=== PATIENT | male | born 1935 | race Caucasian/White ===

== ENCOUNTER → 2017-07-20 | Outpatient (CLI) | payer SELFPAY ==
[2017-07-20 18:17] LABS: ALBUMIN 3.1 g/dL (3.2-5.5); ALBUMIN/GLOBULIN RATIO 0.8 (1.0-2.2); ALKALINE PHOSPHATASE 57 IU/L (42-121); ALT ALANINE AMINOTRANSFERASE 20 IU/L (10-60); AST ASPARTATE AMINOTRANSFERASE 26 IU/L (10-42); BILIRUBIN,TOTAL 0.6 mg/dL (0.2-1.0); BUN - BLOOD UREA NITROGEN 16 mg/dL (6-20); CALCIUM 8.1 mg/dL (8.5-10.3); CARBON DIOXIDE - CO2 28 mmol/L (21-32); CHLORIDE 95 mmol/L (101-111); CHOL/HDL RATIO 3.4 (<5.0); CHOLESTEROL 75 mg/dL; CREATININE 0.5 mg/dL (0.6-1.2); GFR - MDRD 159 (>89); HDL CHOLESTEROL 22 mg/dL; LDL CHOLESTEROL,CALCULATED 36 mg/dL; LDL/HDL RATIO 1.6 (<3.6); SODIUM 129 mmol/L (135-145); VLDL CHOLESTEROL 17 mg/dL
[2017-07-26 10:40] LABS: GLUCOSE 59 mg/dL (70-100)
== END ==
LOC: LAB.R 08:00
PROVIDERS: ATTEND Registered Nurse
DX: M62.81 Muscle weakness (generalized) (principal); E78.1 Pure hyperglyceridemia
CPT/HCPCS: 80053; 80061; 83721; 84443

== ENCOUNTER 2018-06-27 19:28 | Outpatient (CLI) | payer MEDICARE, OTHER ==
--- NOTE | 2018-06-27 20:48 | CONSULTATION NOTE ---
Palliative Care Consultation - Referral Referring Provider: MARTIR Mendes Time of Visit: Mon06/27/2018. 11:10 - 12:05 Referral setting: Assisted living ([facility]) Referral Reason: Insomnia / Pal Care - Information Sources Records reviewed: RN notes reviewed, Previous records reviewed History/Review of Systems obtained from: Patient, Family Exam limitations: No limitations - History of Present Illness Brief History of Present Illness: Thank you, Karely MCMAHAN, for asking the palliative care consult service to be involved in the care of your patient. I am asked to provide support regarding symptom management and advance care managementPa. 82-year-old male living at [facility]. 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 Patient is lying in bed, lethargic, flat affect. Daughter Barbara is present, reports he just went back to bed for rest. Patient is in bed majority of the time; up in his wheelchair about 6 hours spread throughout the day. He has had PT numerous times since the stroke in 2005. He currently has a trapeze above his bed which he uses for repositioning and to exercise. He's lived at [facility] for a year. He relocated to [facility] from [place], [place], after his . His daughter lives in [place]. His only other child, a son, in an accident aged 33 (a furnace blew up). Patient remains in his room most of the time, eating meals in the room. He says this is because he can't swallow well, is not comfortable eating in front of others. Prior to his stroke in 2005 he led an active life, so the drastic change in condition has been difficult. He reports chronic insomnia, lying awake for hours. Mirtzapine was started, he's unsure of improvement. He reports occasional leg cramps from being bedridden (spastic hemiplegia), tramadol helps a lot. He denies nausea/vomiting. He had the flu this winter, had N/V then. Medical/Surgical History - Past Medical History Cardiovascular: reports: High cholesterol Respiratory: reports: None, Other (hay fever) Neuro: CVA (2006), Other (L side hemiparesis and hemiplegia s/p CVA. 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 With lumpectomy) Psych: reports: Depression. denies: Anxiety Musculoskeletal: reports: Hemiplegia (Left side, s/p CVA) - Past Surgical History Other past surgical history: Lumpectomy 2010 - Substance History Use: Uses substance without health or social issues: Tobacco (Never smoker.), Alcohol (formerly drank excessively, per daughter. None now.) Social History - Living Situation Living arrangement: Assisted living ([facility]) Living Situation: With caregiver(s) Support System: He was in 2018. His had cared for him since his stroke in 2005. After her , he moved from [facility] to [facility] and into [facility]. His daughter (his only surviving child) lives in [place]. He had a son who in an accident (furnace explosion) at age 33. 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 Before his stroke and disability he led and active life He loved cars and driving, and his pride and machelle was a red 2 Corvette. He still has a photo of it. Never smoked, but did drink excessively, according to his daughter. He doesn't drink currently. Family History - Family History Family History Comment/Other: Father age 89 of an accident. Had dementia. Mother age 88 of Parkinson's complications. Had colon and breast cancer. age 79 of heart failure. She had Crohn's. His son, Mahin, in an accident at age 33 when a furnace blew up. Medications/Allergies - Medications Home Medications: Ambulatory Orders Medication Instructions Recorded Confirmed Acetaminophen 1,000 mg PO Q6H PRN MDD NTE 3000mg 06/27/18 06/27/18 / 24 hrs Atorvastatin Calcium 40 mg PO .QHS 06/27/18 06/27/18 Cholecalciferol (Vitamin D3) 1 tab PO DAILY 06/27/18 06/27/18 [Vitamin D3] Clopidogrel [Plavix] 75 mg PO DAILY 06/27/18 06/27/18 Levothyroxine [Synthroid] 100 mcg PO .QAM 06/27/18 06/27/18 Mirtazapine 7.5 mg PO .QHS 06/27/18 06/27/18 Multivitamin [Multivitamins] 1 tab PO DAILY 06/27/18 06/27/18 Pyridoxine HCl [Vitamin B-6] 100 mg PO DAILY 06/27/18 06/27/18 traMADol [Ultram] 50 mg PO Q6H PRN 06/27/18 06/27/18 Review of Systems - Constitutional Constitutional: reports: Fatigue, Weakness, Poor appetite, Weight gain (129 lbs 05/25/2018. Has been 128-129 since January. Has slowly gained weight since 07/16/2017 at 122 lbs.) - Ears, Nose & Throat Ears, Nose & Throat: reports: Other (sinus problems from hay fever) - Cardiovascular Cardiovascular: denies: Chest pain - Respiratory Respiratory: denies: SOB at rest - Gastrointestinal Gastrointestinal: reports: Poor appetite. denies: Constipation - Genitourinary Genitourinary: denies: Dysuria - Musculoskeletal Musculoskeletal: reports: Muscle pain (intermittent spastic hemiplegia, improved with tramadol), Limited range of motion (L side hemiparesis and hemiplegia), Assistive devices (trapeze; 4-footed cane; wheelchair), Transfer issues (1 person assist), Other (balance issues) - Neurological Neurological: reports: Other (L side hemiparesis and hemiplegia. He is R side dominant.) - Endocrine Endocrine: reports: Hypothyroidism Physical Exam - Vital Signs Temperature: 96.7 F Pulse Rate: 74 O2 Saturation: 95 (room air) Blood Pressure: 127/64 (wrist cuff) - Physical Exam General Appearance: positive: No acute distress, Alert (mildly somnolent) Eyes Bilateral: positive: Normal inspection ENT: positive: No signs of dehydration Neck: positive: Trachea midline Cardiovascular: positive: Regular rate & rhythm, No gallop Respiratory: positive: Chest non-tender, No respiratory distress, Breath sounds nml Skin: positive: Dryness Extremities: positive: No pedal edema Neurologic/Psychiatric: positive: Oriented x3, Flat affect Palliative Care - POLST Patient has POLST: Yes POLST Status: DNR, Selective Treatment Pain: No pain Tiredness/Fatigue: Moderate (4-6) Drowsiness/Sedation: Moderate (4-6) Nausea: None Depression: Moderate (4-6) Anxiety: None Dyspnea: Mild (1-3) Anorexia: Severe (7-10) Sleep: Sleeps poorly (Mirtazapine has helped) Constipation: No Feelings of wellbeing/Perceived Quality of Life: Poor Performance Status: requires 1-person assist for transfers poor balance due to L side weakness limited self-care requires assistance with dressing and transfers L side hemiparesis and hemiplegia s/p CVA 2006 Problems chewing/swallowing so eats in room in bed majority of the time. up out of bed about 6 hours/day throughout the day continent - Palliative Care Discussion: Patient judges his quality of life as poor because of the physical limitations of his hemiparesis. He used to live an active life; he loved driving cars and had a beautiful 1961 Corvette. His daughter showed me a photo of it. He repeatedly states it's never going to get any better, nothing can be done to improve his condition. He has had Physical Therapy many times. He has a trapeze above his bed which he uses, and he reports that he does exercises learned in PT His daughter afterwards tells me he has been shy and private his entire life and doesn't mingle. So his eating alone in his room is characteristic of him. He has chronic insomnia. Mirtazapine has been started June 06, and he says it helps. He is willing to try melatonin. Provided information on sleep hygiene and counseling to increase physical activity and minimize sedentariness. Had a discussion on hospice; they have had good experience with Hospice in the past. Made sure to clarify that he is not a hospice candidate at this time. Patient confirmed goals of care and his current POLST: DNR and transfer to hospital for stabilization/treatment of reversible conditions. Results - Lab Results Lab results reviewed: Yes Lab and Imaging Results: The most recent labs are 07/20/2017: Na 129 L K+ 3.5 Chl 95 L BUN 16 Cr 0.5 L GFR 159 Glucose 59 L Ca 8.1 L Liver labs are normal Albumin 3.1 Albumin/globulin Ratio 0.8 L HDL 22 L Impression and Recommendations - Palliative Care Impression: 82-year-old male living at [facility]. History of CVA 2005 with L side hemiparesis & hemiplegia, chronic insomnia and breast cancer with lumpectomy. Palliative care to provide ongoing support with symptom management and advance care planning. Recommendations/Counseling Done: L side hemiparesis and hemiplegia s/p CVA 2006: Stable, very limiting to his daily activities and life. Spends only about 6 hours/day out of bed. Does continue with exercises (using an above-bed trapeze) he has learned from PT sessions over the years. Did present that Home Health PT is available, again, if he is interested. At this time he has declined because "nothing will change." Insomnia: Mirtazapine 7.5mg was started June 06 to help with insomnia. He reports it's helped some. He agrees to try melatonin 3mg PO QHS, left a script with [facility] staff. Provided counselling on sleep hygiene; he reports it is hard to go to bed at same time nightly due to inconsistent staff timing of helping him to bed. Depression: He rates his depression 6/10, feels he has poor quality of life because there is no expectation or hope of improving his physical condition. "This is the best it can be." Mirtazapine has just been started 3 weeks ago. Monitor and consider increasing dosage to 15mg. Also at next visit can provide residential counselor regarding Palliative Care [employer] for counselling and therapeutic support. He is naturally shy and private, remains in his room and does not mix with other residents. Daughter reports this is a lifelong pattern. Poor appetite: Patient admits he lacks appetite but makes effort to eat, and has increased his weight by 7 lbs over the past year, though he remains significantly underweight. He has just started mirtazapine 3 weeks ago; monitor to see if it stimulates appetite. Can suggest Ensure Hypothyroid: Asymptomatic. Continue 100mcg levothyroxine. Advance care planning: POLST is in place, patient confirmed it reflects his goals: DNR and selective treatment for reversible conditions and stabilization. Patient considers his quality of life very poor due to lack of possibility of cure or improvement of hemiplegia; he mourns the loss of his previous health and life. Will monitor if mirtazpaine which was just started, helps and can adjust dosage. Also present the social work service to him, for therapeutic/counselling support. Follow up in 2-3 weeks: OK to call daughter, patient does not grain picker his phone.
== END 2018-06-27 19:29 | disposition home or self-care (01) ==
LOC: PC 19:28
PROVIDERS: ATTEND Nurse Practitioner
DX: Z51.5 Encounter for palliative care (principal); I69.954 Hemiplegia and hemiparesis following unspecified cerebrovascular disease affecting left non-dominant side; G47.00 Insomnia, unspecified; F32.9 Major depressive disorder, single episode, unspecified; R63.0 Anorexia; E03.9 Hypothyroidism, unspecified; Z66 Do not resuscitate; Z99.3 Dependence on wheelchair; Z85.3 Personal history of malignant neoplasm of breast; Z79.02 Long term (current) use of antithrombotics/antiplatelets

== ENCOUNTER 2018-09-06 12:10 | Outpatient (CLI) | payer MEDICARE, OTHER ==
--- NOTE | 2018-09-06 17:00 | CONSULTATION NOTE ---
Palliative Care Follow Up - Referral Referring Provider: MARTIR Mendes Time of Visit: [place] 09/06/2018. 12:10 - 12:40 Referral setting: Assisted living ([facility]) Referral Reason: itchy rash on ankles - Information Sources Records reviewed: RN notes reviewed History/Review of Systems obtained from: Patient, Family, Nursing Exam limitations: No limitations - History of Present Illness Update Brief HPI Update: 82-year-old male living at [facility]. 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 Patient's daughter reports new pruritic rash on bilateral ankles. Upon examination there are small, diffuse macular spots on both ankles, in the area that is covered by the patient's ankle socks. The imprints of the socks are visible on the skin. The rash is already resolving and drying up. The patient reports it's not itching currently. The daughter reports having used hydrocortisone 1% cream on the rash. BOLT SORTER counselled to monitor it and continue to use the cream. Patient's skin is also dry and flaky, counselled gentle exfoliation with damp washcloth and moisturizing cream. Skin inspection reveals no pressure wounds or other lesions. His ethan-area was not clean, with fecal matter in the gluteal cleft also some build-up (soap, cream, dander?) in R groin. MARTIR reported this to daughter and patient and also to nursing supervisor color paste mixing. She will update the orders and speak to the caregivers. Staff gets the patient up 3x a day for meals and for assisted ambulation with staff using a gait belt. Staff report he refuses to use the commode as offered, and instead is incontinent of bowel in his bed. He tells them he doesn't realize when he is defecating. He does ring the coronado afterwards for the staff to clean up. He uses the plastic urinal for voiding. Social History - Living Situation Living arrangement: Assisted living ([facility]) Living Situation: With caregiver(s) Support System: He was in 2018. His had cared for him since his stroke in 2005. After her , he moved from [facility] to [facility] and into [facility]. His daughter Barbara (his only surviving child) lives in [place]. He had a son who in an accident (furnace explosion) at age 33. 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 Before his stroke and disability he led an active life He loved cars and driving, and his pride and machelle was a red 2 Corvette. He still has a photo of it. Never smoked, but did drink excessively, according to his daughter. He doesn't drink currently. Medications/Allergies - Medications Home Medications: Ambulatory Orders Medication Instructions Recorded Confirmed Acetaminophen 1,000 mg PO Q6H PRN MDD NTE 3000mg 06/27/18 09/07/18 / 24 hrs Atorvastatin Calcium 40 mg PO .QHS 06/27/18 09/07/18 Cholecalciferol (Vitamin D3) 1 tab PO DAILY 06/27/18 09/07/18 [Vitamin D3] Clopidogrel [Plavix] 75 mg PO DAILY 06/27/18 09/07/18 Levothyroxine [Synthroid] 100 mcg PO .QAM 06/27/18 09/07/18 Mirtazapine 7.5 mg PO .QHS 06/27/18 09/07/18 Multivitamin [Multivitamins] 1 tab PO DAILY 06/27/18 09/07/18 Pyridoxine HCl [Vitamin B-6] 100 mg PO DAILY 06/27/18 09/07/18 traMADol [Ultram] 50 mg PO Q6H PRN 06/27/18 09/07/18 Melatonin 3 mg PO .QHS 09/07/18 09/07/18 Review of Systems - Constitutional Constitutional: reports: Weight gain (Patient self reports weighing 150 lbs a week ago and reports gainine some weight over thepast year.). denies: Fatigue, Poor appetite - Ears, Nose & Throat Ears, Nose & Throat: denies: Hearing loss - Cardiovascular Cardiovascular: reports: Exertional dyspnea. denies: Chest pain, Edema, Decr. exercise tolerance - Respiratory Respiratory: denies: Cough, Sputum production, SOB at rest, SOB with exertion - Gastrointestinal Gastrointestinal: denies: Constipation, Change in bowel habits - Genitourinary Genitourinary: denies: Dysuria, Incontinence - Musculoskeletal Musculoskeletal: reports: Stiffness, Limited range of motion (left side), Muscle weakness (deconditioning, but still has muscle tone in upper extremities), Assistive devices (assisted ambulation with staff using gait belt), Transfer issues. denies: Muscle pain, Back pain - Integumentary Integumentary: reports: Rash (improving), Pruritis (improving), Dryness - Neurological Neurological: reports: Pre-existing deficit (L side hemiparesis and hemiplegia. He is R side dominant.), Abnormal gait - Psychiatric Psychiatric: reports: Depression (at baseline), Anxiety ("the normal anxiety everyone has") - Endocrine Endocrine: reports: Hypothyroidism Physical Exam - Vital Signs Temperature: 96.9 F Pulse Rate: 51 O2 Saturation: 97 (room air) Blood Pressure: 130/50 (wrist cuff) - Physical Exam General Appearance: positive: No acute distress, Alert Eyes Bilateral: positive: Normal inspection ENT: positive: Dry mucous membranes Neck: positive: Trachea midline Cardiovascular: positive: Regular rate & rhythm, No murmur Respiratory: positive: Chest non-tender, No respiratory distress, Diminished in bases Abdomen: positive: Non-tender, Soft Skin: positive: Dryness, Rash (on both ankles: resolving, drying up, maybe be associated with heat.), Wound (Scabbed lesion about about 0.75cm diameter under R nostril. Patient does not remember how it occurred. No s/s infection.) Neurologic/Psychiatric: positive: Oriented x3, Mood/affect nml Palliative Care - POLST Patient has POLST: Yes POLST Status: DNR, Selective Treatment Pain: No pain Tiredness/Fatigue: None Drowsiness/Sedation: None Nausea: None Depression: Mild (1-3) Anxiety: Mild (1-3), Comment Dyspnea: None Anorexia: None Sleep: Other (chronic insomnia, on melatonin) Constipation: No Feelings of wellbeing/Perceived Quality of Life: Poor, Comment Performance Status: requires 1-person assist for transfers ambulatory with accompanying staff using gait belt uses above bed trapze poor balance secondary to L side weakness limited self-care out of bed 3x per day for meals and ambulation problems chewing and swallowing so eats in his room continent of urine incontinent of bowel, may be voluntary consistently declines to use commode or toilet for BMs - Palliative Care Discussion: As at the initial palliative care visit, the patient judges his quality of life as being poor due to his physical limitations. 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 Patient reports baseline depression, about his physical condition. 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 He acknowledges that he won't ever regain his full functionality and this is difficult for him. We discussed how to improve or alleviate the effects of his debilities, but the patient is not interested in Home Health PT, at least not at this time. He has had PT in the past and he continues to do some of the exercises he learned. He also is not interested in seeing the Palliative Care SW for therapeutic counseling. Also discussed his current antidepressant, which he thinks is working satisfactorily. He does not want dosing adjustment at this time. Barbara has reported in the past that the patient is at his baseline as far as depression and outlook, and actually is doing well considering he's never had a cheerful personality. Impression and Recommendations - Palliative Care Impression: 82-year-old male living at [facility]. 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 He had a recent mild rash on ankles which is resolving. Palliative care to provide ongoing support and monitoring. Recommendations/Counseling Done: L side hemiparesis and hemiplegia s/p CVA 2006: Stable, very limiting to his daily activities and life. Staff gets him out of bed 3 times per day for meals and assisted walks with staff using gait belt. Patient reports doing his exercises with the above-bed trapeze that he has learned through past PT sessions. Patient declines Home Health PT at this time. Pruritic rash on ankles: Resolving with hydrocortisone 1% cream his daughter had been applying. Possibly heat related, it occurred where his ankle socks were tight against his skin, and he keeps his room warm. Continue to monitor, notify BOLT SORTER if it worsens and we can try hydrocortisone 2.t% cream. Personal hygiene: Staff showers the patient once a week. He had some cruddy buildup in his R groin (BOLT SORTER removed with wet towels) and also crustedfecal matter in gluteal cleft. MARTIR brought this to the attention of the patient and his daughter and suggested they follow up with nursing staff. MARTIR also spoke with nursing supervisor color paste mixing. She confirmed she will speak with staff and update the care plan. Patient has dry skin with flakes; spoke to daughter and to supervisor color paste mixing about exfoliating his skin with washcloth during showers and using moisturizer afterwards. Insomnia, chronic: Continue mirtazapine 7.5mg and melatonin 3mg. Depression: He continues to report a poor quality of life due to his physical condition with no prospect of improvement. He doesn't want to increase mirtazapine dosing at this time. Discussed the services of Palliative Care school social worker, and patient also declines this. Poor appetite: Patient denies poor appetite, says he was 150 lbs recently, and has gained some weight over the past year. Continue mirtazapine at the present dose. Advance care planning: POLST: DNR and selective treatment for reversible conditions and stabilization. Daughter feels he is stable and doesn't need routine visits during the summer months. She prefers to phone Palliative Care if something comes up. She would like routine oversight visits during the winter months when she and her spouse are "snowbirding" in [place]. Time Spent: 30 minutes were spent with more than 50% of the time spent on counseling, education, and coordination of care with staff.
== END 2018-09-06 12:11 | disposition home or self-care (01) ==
LOC: PC 12:10
PROVIDERS: ATTEND Nurse Practitioner
DX: Z51.5 Encounter for palliative care (principal); I69.354 Hemiplegia and hemiparesis following cerebral infarction affecting left non-dominant side; R21 Rash and other nonspecific skin eruption; L29.9 Pruritus, unspecified; F32.9 Major depressive disorder, single episode, unspecified; Z74.1 Need for assistance with personal care; Z66 Do not resuscitate

== ENCOUNTER 2020-06-17 09:35 | Outpatient (CLI) | payer MEDICARE, OTHER ==
--- NOTE | 2020-06-17 12:04 | CONSULTATION NOTE ---
Palliative Care Follow Up - Referral Referring Provider: MARTIR Mendes Time of Visit: 7738-9282 Referral setting: Assisted living Referral Reason: CVA with residual effects/Debility/Depression - Information Sources Records reviewed: Previous records reviewed History/Review of Systems obtained from: Patient, Family (daughter/Barbara ESCOBEDO present), Nursing (IVONNE Jolly) Exam limitations: No limitations - History of Present Illness Update Brief HPI Update: This is an 84-year-old gentleman who was seen and evaluated at [facility] due to CVA with residual effects, debility, and depression with his daughter/DPCrystal ALLEN present. The patient unfortunately sustained a CVA in 2005 which resulted in left-sided hemiplegia. He reports that his left upper arm is "useless." He is right-handed. He continues to be able to self feed. He does have a trapeze over his bed to assist with repositioning and sitting upright. He is able to ambulate with a hemiwalker and support of an additional person with a gait belt. The patient himself is frustrated that he has not been able to return to his previous baseline status where he was quite independent. He moved into [facility] in approximately May 2020. After his CVA he did attend a skilled rehabilitation facility and has had physical therapy in the home through the years last time being well over a year ago. He reports a decreased overall appetite consuming approximately 30 to 40% of his food. He reports that some of this is contributable to the food not tasting well. He does not come down for meals and prefers to stay in his room. He relays that he does not have enough energy built up to them require more hearty appetite. Reports that most of his adult life he weighed approximately 160 pounds. He does have intermittent dysphagia surrounding meals. No history of aspiration pneumonia. He does have a longstanding history of chronic insomnia and typically reports that "the nights are long" that he relays is due to the monotony. He is presently on mirtazapine 7.5 mg nightly as well as melatonin 3 mg nightly. He does not report to frequent napping during the day. Does report a mildly depressed mood that has been compounded by the recent isolation that Covid19 has contributed to. The patient was unable to see his daughter until recently due to visitor restrictions. The patient's daughter is expressing concerns about the length of the patient's toenails as it has been sometime since they have been trimmed or cut. There previously was a RN who came to the facility to provide a podiatry care but this has gone to the [facility] since the initiation of Covid19. Patient is seen out of bed in his wheelchair with contractures noted to the left upper extremity, well groomed and no evidence of acute distress. 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 Social History - Living Situation Living arrangement: Assisted living Support System: The patient grew up in [place] [facility] [facility]. He lives [place] [facility] and his son. He and his and moved to [place], [place] for his job. 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 He and his had 2 children, a son and daughter. The patient's son in an accident. The patient's daughter, Crystal is his DPOA and resides in [place] with contact number [phone]. The patient is . He moved into [facility] and approximately May 2017. The patient's spouse cared for him after he sustained a stroke in 2005. The patient was a very active individual until he sustained his stroke. He continues to enjoy a sports with listening to football on the radio or reading about it in the paper. He also enjoys listening to popular music from the 50s and 60s on the radio. He describes great pride and machelle in his $4000 purchase of a red 2 Corvette. He has a miniature replica of it on his television. He loves driving that Corvette and would take it on many trips. Medications/Allergies - Medications Home Medications: Ambulatory Orders Medication Instructions Recorded Confirmed Acetaminophen [Acetaminophen Extra 1,000 mg PO Q6H PRN MDD NTE 3g 06/17/20 06/17/20 Strength] Atorvastatin Calcium 40 mg PO QPM 06/17/20 06/17/20 Cavilon Durable Barrier 1 applic TP DAILY PRN 06/17/20 Cholecalciferol (Vitamin D3) 1 cap PO DAILY 06/17/20 06/17/20 [Vitamin D3] Clopidogrel [Plavix] 75 mg PO DAILY 06/17/20 06/17/20 Ketoconazole 2% Cream [Nizoral 2% 1 applic TP DAILY MDD until rash 06/17/20 06/17/20 Cream] resolved Levothyroxine [Synthroid] 100 mcg PO DAILY 06/17/20 06/17/20 Melatonin 3 mg PO QPM 06/17/20 06/17/20 Mirtazapine [Remeron] 15 mg PO QPM 06/17/20 06/17/20 Multivitamin 1 tab PO DAILY 06/17/20 06/17/20 Vitamin B 6 100 mg PO DAILY 06/17/20 traMADol [Ultram] 50 mg PO Q6H PRN 06/17/20 06/17/20 - Allergies Allergies/Adverse Reactions: Allergies Allergy/AdvReac Type Severity Reaction Status Date / Time No Known Drug Allergies Allergy Verified 06/17/20 12:55 Review of Systems - Constitutional Constitutional: reports: Weight stable. denies: Fever - Eyes Eyes: reports: Corrective lenses (for reading; no history of cataract extraction) - Ears, Nose & Throat Ears, Nose & Throat: denies: Hearing aids, Dry mouth - Cardiovascular Cardiovascular: denies: Chest pain, Edema - Respiratory Respiratory: reports: Cough (occasionally with meals due to dysphagia 2/2 history of CVA) - Gastrointestinal Gastrointestinal: reports: Other (Fair appetite). denies: Abdominal pain, Constipation (regular with daily prune juice consumption), Diarrhea, Vomiting - Genitourinary Genitourinary: denies: Dysuria - Musculoskeletal Musculoskeletal: reports: Stiffness (LUE that improves after moving first thing in the morning), Assistive devices, Transfer issues - Integumentary Integumentary: reports: Rash (groin that is almost resolved per patient's report and receiving ketoconazole topical cream to site), Other (skin lesion to above right upper lip along cheek that has been present "for years" and has not changed in size, no crusting or bleeding. Reports to applying fluorouracil to site in past.) - Neurological Neurological: reports: General weakness. denies: Headache, Memory problems - Psychiatric Psychiatric: reports: Depression, Other (Insomnia) - Endocrine Endocrine: reports: Hypothyroidism - Hematologic/Lymphatic Hematologic/Lymph: denies: Recurrent infections - All Other Systems All Other Systems: reports: Reviewed and negative Physical Exam - Vital Signs Temperature: 36.6 C Pulse Rate: 59 O2 Saturation: 99 (on RA) Blood Pressure: 110/64 (right arm) - Physical Exam General Appearance: positive: No acute distress, Alert, Other (OOB in wheelchair) Eyes Bilateral: positive: Normal inspection, PERRL ENT: positive: No signs of dehydration Neck: positive: Trachea midline Cardiovascular: positive: Regular rate & rhythm, No murmur Respiratory: positive: No respiratory distress, Breath sounds nml, Rhonchi (LLL that clears with cough) Abdomen: positive: Non-tender, Soft, Nml bowel sounds. negative: Distended Skin: positive: Other (skin lesion to right cheek above lip with dark appearance, slightly raised, no erythema or crusting appx 1cm in size) Extremities: positive: No pedal edema, Other ([place] neck deformity left hand 3rd finger; elongated toenails with thickening to left 2nd toenail bed) Neurologic/Psychiatric: positive: Oriented x3 (memory recall 3/3), Weakness (left sided), Flat affect Palliative Care - POLST Patient has POLST: Yes POLST Status: DNR, Selective Treatment Pain: No pain Anorexia: Mild (1-3) Depression: Mild (1-3) (due to isolation due to COVID-19 and continued lack of full independence) Feelings of wellbeing/Perceived Quality of Life: Good Sleep: Other (History of insomnia) Constipation: Yes (with routine prune juice) Performance Status: Patient has a left-sided weakness due to history of CVA. He requires assistance with dressing and transfers. He does have intermittent dysphagia when consuming meals due to history of CVA and spends meals in his room. He is up for all 3 meals. Typically utilizes his wheelchair and is able to self propel. He requires 1 person assist with transfers and with ambulation he utilizes a hemiwalker and 1 person assist. PPS 50% - Palliative Care Discussion: The patient continues to struggle with his lack of full independence and activity that he had prior to his CVA. He continues to have some mild depressive symptoms due to his physical limitations as well as social isolation that has started to lift due to the coronavirus pandemic. Counseling provided regarding normalizing anticipatory grief and loss of function as well as setting expectations moving forward and looking at activities and people he finds machelle in. As the patient strongly values his independence would greatly benefit from reintroduction of physical therapy and Occupational Therapy within the home e nvironment to maintain his functional ability and improve his strength as able. Impression and Recommendations - Palliative Care Impression: This is an 84-year-old gentleman with a history of CVA with left-sided hemiparesis and hemiplasia, chronic insomnia, depression, and debility due to CVA. Patient would benefit from further address seeing his depressive symptoms with an increase in mirtazapine to also assist with insomnia as well as for appetite stimulation. Supportive listening provided. Palliative care to continue to provide ongoing support for symptom management, care coordination and anticipatory guidance. Recommendations/Counseling Done: 1. CVA with residual left-sided hemiparesis and hemiplegia. Chronic/Progressive. Supportive care. Continue secondary preventative measures for stroke in optimizing BP control, plavix and statin therapy. Previously on aggrenox that was discontinued. Fall precuations. Would benefit from home health PT and OT and will refer to [facility] for treatment and evaluation. 2. Dysphagia. Due to history of CVA. No history of aspiration pneumonia. Aspiration precautions. 3. Skin lesion, right cheek. History of squamous cell carcinoma. No change in size to site over several years. Offered referral to dermatology for biopsy and removal but declined. 4. Depression. Patient expresses that he does not have a desire to but laments his inability to be independent again. Normalization of his feelings. Increase mirtazapine to 15 mg nightly. Offered palliative care books salesperson for additional support however, the patient presently declines. Continue to monitor and adjust medication regimen as needed. 5. Decreased oral intake. Request weekly weights x6 weeks and follow with results. Continue protein drink once daily that he enjoys consuming. Continue to monitor. 6. Elongated toenails. Discussed with facility RN, Laura and as the patient does not have a history of diabetes mellitus staff will perform toenail care and trimming. Daughter is appreciative of the service. 7. Advanced care planning. POLST in place as DN AR with selective interventions. Continue to provide support and normalization of feelings regarding the patient's inability to return to full independence. We will continue to build rapport. FACE TO FACE: It would be a taxing considerable effort for the patient to his home home secondary to her, lower extremity weakness, and left hemiplegia and hemiparesis 2/2 to CVA. Request PT for strengthening program with a goal of maintaining strength and increased ability to ambulate. Training with caregivers, equipment recommendations. OT for upper extremity strength training, energy conservation, and engagement of further activities to assist ADLs. Total time spent 75 minutes with greater than 50% of this spent in counseling and coordination of care with patient, daughter/DPOA Barbara and IVONNE Jolly; review of palliative care services and philosophy; supportive listening; review of symptom management and anticipatory guidance. Disclaimer: The chart note was formulated using voice recognition technology and unfortunately sound alike errors may occur.
== END 2020-06-17 09:36 | disposition home or self-care (01) ==
LOC: PC 09:35
PROVIDERS: ATTEND Nurse Practitioner Family
DX: Z51.5 Encounter for palliative care (principal); I69.954 Hemiplegia and hemiparesis following unspecified cerebrovascular disease affecting left non-dominant side; I69.991 Dysphagia following unspecified cerebrovascular disease; F32.9 Major depressive disorder, single episode, unspecified; G47.00 Insomnia, unspecified; R13.10 Dysphagia, unspecified; E03.9 Hypothyroidism, unspecified; L98.9 Disorder of the skin and subcutaneous tissue, unspecified; Z66 Do not resuscitate
CPT/HCPCS: 99350

== ENCOUNTER 2020-07-20 10:50 | Outpatient (CLI) | payer MEDICARE, OTHER ==
--- NOTE | 2020-07-20 17:00 | CONSULTATION NOTE ---
Palliative Care Follow Up - Referral Referring Provider: MARTIR Perry Time of Visit: Initiated 1050 Referral setting: Assisted living Referral Reason: CVA with residual effects/Depression/Insomnia - Information Sources Records reviewed: Previous records reviewed History/Review of Systems obtained from: Patient, Family (daughter, Barbara) Exam limitations: No limitations - History of Present Illness Update Brief HPI Update: This is an 84-year-old gentleman who was seen and evaluated in [facility] due to CVA with residual effects, debility, depression and insomnia with his daughter/Crystal ESCOBEDO present. The patient unfortunately sustained a CVA in 2005 which resulted in left-sided franco-Cha. Fortunately, he is right-handed. He continues to be able to self feed. He does have a trapeze over his bed to assist with repositioning and sitting upright. He is able to ambulate with a hemiwalker and support of an additional person with a gait belt. He continues to remain frustrated that he is unable to regain his independence. He presently is working with home health physical therapy from [facility]. He continues to prefer to spend time in his room especially listening to music. He does report lamenting that he is no longer able to do the things that he wants was able to do. His daughter continues to offer to take him to activities or to go outside but the patient continues to decline preferring to remain in his room. Per the patient's daughter this is been longstanding since he suffered his stroke even while living at home with his . He has not been 1 to go outside and is much of an introvert. He does have a longstanding history of chronic insomnia and again, underlying depressive symptoms. On last evaluation his mirtazapine was increased to 50 mg nightly. He has reported a benefit with his sleeping patterns and being able to sleep more easily overnight. The patient is seen out of bed in his wheelchair with contractures noted to the left upper extremity, well groomed and no evidence of acute distress. 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 Social History - Living Situation Living arrangement: Assisted living Support System: The patient grew up in [facility]. He and his and moved to [place], [place] for his job. 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 He and his had 2 children, a son and daughter. TThe patient's daughter, Barbara is his DPOA and resides in [place] with contact number [phone]. The patient is . He moved into [facility] and approximately May 2017. The patient's spouse cared for him after he sustained a stroke in 2005. The patient was a very active individual until he sustained his stroke. He also enjoys listening to popular music from the 50s and 60s on the radio. Now that [facility] is allowing visitors into the facility due to recent restrictions due to COVID-19, the patient's daughter is a regular visitor providing assistance with anything that the patient may require in providing a calming presence. Medications/Allergies - Medications Home Medications: Ambulatory Orders Medication Instructions Recorded Confirmed Acetaminophen [Acetaminophen Extra 1,000 mg PO Q6H PRN MDD NTE 3g 06/17/20 06/17/20 Strength] Atorvastatin Calcium 40 mg PO QPM 06/17/20 06/17/20 Cavilon Durable Barrier 1 applic TP DAILY PRN 06/17/20 Cholecalciferol (Vitamin D3) 1 cap PO DAILY 06/17/20 06/17/20 [Vitamin D3] Clopidogrel [Plavix] 75 mg PO DAILY 06/17/20 06/17/20 Levothyroxine [Synthroid] 100 mcg PO DAILY 06/17/20 06/17/20 Melatonin 3 mg PO QPM 06/17/20 06/17/20 Mirtazapine [Remeron] 15 mg PO QPM 06/17/20 06/17/20 Multivitamin 1 tab PO DAILY 06/17/20 06/17/20 Vitamin B 6 100 mg PO DAILY 06/17/20 traMADol [Ultram] 50 mg PO Q6H PRN 06/17/20 06/17/20 - Allergies Allergies/Adverse Reactions: Allergies Allergy/AdvReac Type Severity Reaction Status Date / Time No Known Drug Allergies Allergy Verified 06/17/20 12:55 Review of Systems - Constitutional Constitutional: reports: Weight stable (has declined recent weight weighs). denies: Fever - Eyes Eyes: reports: Corrective lenses (for reading; no history of cataract extraction) - Ears, Nose & Throat Ears, Nose & Throat: denies: Hearing loss - Cardiovascular Cardiovascular: denies: Chest pain, Edema - Respiratory Respiratory: reports: Cough (occasionally with meals due to dysphagia 2/2 history of CVA) - Gastrointestinal Gastrointestinal: reports: Other (Fair appetite with most consumption at breakfast and hit or miss with remaining two meals). denies: Constipation (bowel movement every day or every other day with daily prune juice consumption), Diarrhea, Vomiting - Genitourinary Genitourinary: denies: Dysuria - Musculoskeletal Musculoskeletal: reports: Stiffness (LUE that improves after moving first thing in the morning), Assistive devices, Transfer issues - Integumentary Integumentary: reports: Other (skin lesion to above right upper lip along cheek that has been present "for years" and has not changed in size, no crusting or bleeding. Reports to applying fluorouracil to site in past.). denies: Rash - Neurological Neurological: reports: General weakness. denies: Headache, Memory problems - Psychiatric Psychiatric: reports: Depression, Other (Insomnia) - Endocrine Endocrine: reports: Hypothyroidism - All Other Systems All Other Systems: reports: Reviewed and negative Physical Exam - Vital Signs Temperature: 36.7 C Pulse Rate: 51 O2 Saturation: 98 (on RA) Blood Pressure: 130/66 - Physical Exam General Appearance: positive: No acute distress, Alert, Other (OOB in wheelchair) Eyes Bilateral: positive: Normal inspection ENT: positive: No signs of dehydration Neck: positive: Trachea midline Cardiovascular: positive: No murmur, Bradycardia Respiratory: positive: No respiratory distress, Breath sounds nml. negative: Rhonchi Abdomen: positive: Non-tender, Soft, Nml bowel sounds. negative: Distended Skin: positive: Other (skin lesion to right cheek above lip with dark appearance, slightly raised, no erythema or crusting appx 1cm in size--unchanged) Extremities: positive: No pedal edema, Other ([place] neck deformity left hand 3rd finger) Neurologic/Psychiatric: positive: Oriented x3, Weakness (left sided), Flat affect Palliative Care - POLST Patient has POLST: Yes POLST Status: DNR, Selective Treatment Pain: No pain Depression: Mild (1-3) (see HPI) - Palliative Care Discussion: Patient is a very guarded individual is is quite introverted. He is grateful for the support night his daughter offers him but he does laments the loss of his independence and activity that he was able to achieve prior to his CVA. He continues to have some reports of depressive symptoms related to his physical limitations as well as social isolation. Continue to encourage the patient to get outside during warmer weather as well as engaging in activities. The patient continues to prefer to be in his room and listening to music on his radio from the 50s and 60s. We will continue to provide support. Did offer sewing machine operator zipper support however, the patient declines. Continue to engage with physical therapy that is on site for strengthening and ambulation. Impression and Recommendations - Palliative Care Impression: This is an 84-year-old gentleman with a history of CVA with left-sided hemiparesis and hemiplegia, chronic insomnia, depression, debility due to CVA. We will continue to support the patient with his depressive symptoms due to his functional limitations and encourage to perform activities that he enjoys. Continue mirtazapine at its present dose that has been effective for the patient's underlying insomnia. Noted to have bradycardia today however, is without cardiac complaints and will continue to monitor. Supportive listening provided. Palliative care to continue provide ongoing support for symptom management, care coordination and anticipatory guidance. Recommendations/Counseling Done: 1. Bradycardia. Heart rate 51 today. Patient is without cardiac complaints. He is on no antihypertensive medications. Discussed the need to change positions slowly. Also discussed use of foot pumps prior to standing. May be due to some underlying autonomic dysfunction due to the patient's history of CVA and deconditioning. As the patient is asymptomatic we will continue to monitor at this time and patient's PCP is aware per daughter's report. 2. Depression. Patient continues to Binu his inability to be as active as independent as he wants was. Normalized patient's feelings and provided supportive listening. Continue to encourage to engage in activities that he enjoys and what he feels comfortable in participating in. Continue mirtazapine 50 mg nightly. Continues to decline palliative care sewing machine operator zipper for additional support. Continue to monitor and adjust medication regimen as needed. 3. CVA with residual left-sided hemiparesis and hemiaplasia. Chronic. Progressive. Fall precautions. Supportive care. Continue secondary preventive measures for stroke and optimizing blood pressure control, Plavix and statin therapy. Previously on Aggrenox that was discontinued. Continue to be supported by home health physical therapy by [facility]. CPT 42809 Plan of care reviewed with the patient and daughter, Crystal at length with questions answered and addressed. Also updated IVONNE Sanchez at [facility]. Disclaimer: The chart note was formulated using voice recognition technology and unfortunately sound alike errors may occur.
== END 2020-07-20 10:51 | disposition home or self-care (01) ==
LOC: PC 10:50
PROVIDERS: ATTEND Nurse Practitioner Family
DX: Z51.5 Encounter for palliative care (principal); R00.1 Bradycardia, unspecified; F32.9 Major depressive disorder, single episode, unspecified; I69.354 Hemiplegia and hemiparesis following cerebral infarction affecting left non-dominant side; I69.391 Dysphagia following cerebral infarction; R13.10 Dysphagia, unspecified; I10 Essential (primary) hypertension; Z66 Do not resuscitate

== ENCOUNTER 2020-09-29 11:20 | Outpatient (CLI) | payer MEDICARE, OTHER ==
--- NOTE | 2020-09-29 14:41 | CONSULTATION NOTE ---
Palliative Care Follow Up - Referral Referring Provider: MARTIR Perry Time of Visit: Initiated 1120 Referral setting: Assisted living Referral Reason: CVA with residual effects/Depression - Information Sources Records reviewed: Previous records reviewed History/Review of Systems obtained from: Patient Exam limitations: No limitations - History of Present Illness Update Brief HPI Update: This is an 85-year-old gentleman who was seen in follow-up today at [facility] due to CVA with residual effects, debility, depression and insomnia. The patient has a longstanding history of chronic insomnia with underlying depressive symptoms. He is presently on mirtazapine 15 mg at bedtime and this has been effective in addition to his melatonin 3 mg at bedtime. He reports that he is sleeping well at night. He is denying any reports of pain. The patient reports that his appetite has been stable. He continues to prefer dining in his room. His weight is holding steady steady at 160 pounds as of 09/24/2020. The patient unfortunately sustained a CVA in 2005 which resulted in left sided hemiparesis. Fortunately, he is right-handed. He continues to be able to self feed. He does have a trapeze over his bed to assist with repositioning and sitting upright. However, he continues to require assistance from staff for transfers at times. He does have contracture to his left hand. The patient reports intermittent constipation that is relieved by consumption of prune juice. Patient is seen resting in bed taking a nap after breakfast. Well-groomed no evidence of acute distress. 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 Social History - Living Situation Living arrangement: Assisted living Support System: The patient grew up in [place]. He and his and moved to [place], [place] for his job. 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 He and his had 2 children, a son and daughter. The patient's daughter, Barbara is his DPOA and resides in [place] with contact number [phone]. The patient is . He moved into [facility] and approximately May 2017. The patient's spouse cared for him after he sustained a stroke in 2005. The patient was a very active individual until he sustained his stroke. He also enjoys listening to popular music from the 50s and 60s on the radio and the news on radio. Patient did share today a picture on the wall with a dog, Leni was his dog growing up as a child. Shared fond memories. Medications/Allergies - Medications Home Medications: Ambulatory Orders Medication Instructions Recorded Confirmed Acetaminophen [Acetaminophen Extra 1,000 mg PO Q6H PRN MDD NTE 3g 06/17/20 06/17/20 Strength] Atorvastatin Calcium 40 mg PO QPM 06/17/20 06/17/20 Cavilon Durable Barrier 1 applic TP DAILY PRN 06/17/20 Cholecalciferol (Vitamin D3) 1 cap PO DAILY 06/17/20 06/17/20 [Vitamin D3] Clopidogrel [Plavix] 75 mg PO DAILY 06/17/20 06/17/20 Levothyroxine [Synthroid] 100 mcg PO DAILY 06/17/20 06/17/20 Melatonin 3 mg PO QPM 06/17/20 06/17/20 Mirtazapine [Remeron] 15 mg PO QPM 06/17/20 06/17/20 Multivitamin 1 tab PO DAILY 06/17/20 06/17/20 Vitamin B 6 100 mg PO DAILY 06/17/20 traMADol [Ultram] 50 mg PO Q6H PRN 06/17/20 06/17/20 - Allergies Allergies/Adverse Reactions: Allergies Allergy/AdvReac Type Severity Reaction Status Date / Time No Known Drug Allergies Allergy Verified 06/17/20 12:55 Review of Systems - Constitutional Constitutional: reports: Weight stable (160lb on 09/24/2020). denies: Fever - Eyes Eyes: reports: Corrective lenses (for reading; no history of cataract extraction) - Ears, Nose & Throat Ears, Nose & Throat: denies: Hearing aids - Cardiovascular Cardiovascular: denies: Chest pain, Edema - Respiratory Respiratory: reports: Cough (occasionally with meals due to dysphagia 2/2 history of CVA). denies: Wheezing - Gastrointestinal Gastrointestinal: reports: Other (Fair appetite with most consumption at breakfast and hit or miss with remaining two meals as he does not always like the food offered). denies: Abdominal pain, Constipation (bowel movement every day or every other day with daily prune juice consumption), Vomiting - Musculoskeletal Musculoskeletal: reports: Stiffness (LUE that improves after moving first thing in the morning), Assistive devices, Transfer issues - Integumentary Integumentary: reports: Other (skin lesion to above right upper lip along cheek that has been present "for years" and has not changed in size, no crusting or bleeding. Reports to applying fluorouracil to site in past.). denies: Rash - Neurological Neurological: reports: General weakness. denies: Headache, Memory problems - Psychiatric Psychiatric: reports: Depression, Other (Insomnia) - Endocrine Endocrine: reports: Hypothyroidism - All Other Systems All Other Systems: reports: Reviewed and negative Physical Exam - Vital Signs Temperature: 36.8 C Pulse Rate: 52 O2 Saturation: 97 (on RA) Blood Pressure: 145/82 (right wrist cuff) - Physical Exam General Appearance: positive: No acute distress, Alert, Other (resting in bed with trapazee bar overhead) Eyes Bilateral: positive: Normal inspection ENT: positive: No signs of dehydration Neck: positive: Trachea midline Cardiovascular: positive: No murmur, Bradycardia Respiratory: positive: No respiratory distress, Breath sounds nml Abdomen: positive: Non-tender, Soft, Nml bowel sounds Skin: positive: Other (skin lesion to right cheek above lip with dark appearance, slightly raised, no erythema or crusting appx 1cm in size--unchanged; generalized dryness and applied cetaphil lotion to BUE with patient permission) Extremities: positive: No pedal edema, Other (Preston neck deformity left hand 3rd finger with contracture) Neurologic/Psychiatric: positive: Oriented x3, Weakness (left sided), Flat affect Palliative Care - POLST Patient has POLST: Yes POLST Status: DNR, Selective Treatment Pain: No pain Constipation: Managed - Palliative Care Discussion: Patient continues to be a very guarded individual and is quite introverted. He has a preference for entertaining himself in his room listening to the radio as well as having his meals in his room. He has supported by his daughter who comes and visits. The patient denies depressive symptoms today. Today, he was in good spirits and denies any acute complaints or concerns that he wishes to have addressed today. Impression and Recommendations - Palliative Care Impression: This is an 85-year-old gentleman with a history of CVA with left-sided hemiparesis and hemiplegia, chronic insomnia, depression, debility due to CVA. Depressive symptoms are presently well controlled as well as insomnia with mirtazapine and melatonin. Patient with continued noted bradycardia however without cardiac complaints we will continue to monitor. Supportive listening provided. Out of care will continue provide ongoing support for symptom management, care coordination and anticipatory guidance. Recommendations/Counseling Done: 1. Insomnia. Chronic longstanding history. Presently controlled with melatonin and mirtazapine. No need for medication adjustment at this time. 2. Depression. Patient was in good spirits today. Presently controlled with mirtazapine 50 mg nightly. Plan to titrate if needed in the future for management of symptoms. Continue to monitor and adjust medication regimen as needed. 3. Bradycardia. Heart rate today 52. Patient without cardiac complaints. On no antihypertensive medications. May be due to autonomic dysfunction due to the patient's history of CVA and deconditioning. As the patient is asymptomatic we will continue to monitor at the present time and PCP aware. 4. CVA with residual left-sided hemiparesis and hemiplasia. Chronic. Progress emelina. Fall precautions. Supportive care. Continue secondary preventive measures for stroke with Plavix and statin therapy. Previously on Aggrenox that was discontinued. Status post home health physical therapy by signature. CPT 59168 Plan of care reviewed with the patient and facility RNLaura with questions answered and addressed. Disclaimer: The chart note was formulated using voice recognition technology and unfortunately sound alike errors may occur.
== END 2020-09-29 11:21 | disposition home or self-care (01) ==
LOC: PC 11:20
PROVIDERS: ATTEND Nurse Practitioner Family
DX: Z51.5 Encounter for palliative care (principal); I69.954 Hemiplegia and hemiparesis following unspecified cerebrovascular disease affecting left non-dominant side; F51.04 Psychophysiologic insomnia; I10 Essential (primary) hypertension; Z85.3 Personal history of malignant neoplasm of breast; Z90.12 Acquired absence of left breast and nipple; K21.9 Gastro-esophageal reflux disease without esophagitis; F32.9 Major depressive disorder, single episode, unspecified; R13.10 Dysphagia, unspecified; E78.5 Hyperlipidemia, unspecified; E03.9 Hypothyroidism, unspecified; Z66 Do not resuscitate; R00.1 Bradycardia, unspecified

== ENCOUNTER 2020-10-26 09:30 | Outpatient (CLI) | payer MEDICARE, OTHER ==
--- NOTE | 2020-10-26 12:15 | CONSULTATION NOTE ---
Palliative Care Follow Up - Referral Referring Provider: Karely MCMAHAN Time of Visit: Referral setting: Assisted living Referral Reason: FUO/Generalized Weakness/Left sided Pain/Goals of Care - Information Sources Records reviewed: Previous records reviewed History/Review of Systems obtained from: Patient, Family (daughter Crystal), Caregiver (facililty staff) Exam limitations: Clinical condition - History of Present Illness Update Brief HPI Update: This is an 85-year-old gentleman who has at baseline is CVA with residual effects of debility, left hemiparesis, depression, which she sustained in 2005. He presented yesterday with change in functional status, was quite weak, unable to bear weight, his legs gave out under him. The difficult time getting him in a wheelchair. He did spike a temp of up to 100.0. Denies any chills with this, denies cough, shortness of breath, O2 sats were in the 90s, daughter reports he was somewhat bradycardic at 48. Today he is 74, temp 97.7, O2 sats 97%. His breath sounds are diminished throughout. Staff report he had been incontinent of urine, and loose stools. There have been some concern about COVID-19, though no direct exposure, they did test him with a home test that was negative. Patient denies any aspiration, coughing, reports has baseline mucus in his throat that clears without difficulty. Patient denies any pain or dysuria, is unable to void in the toilet, often goes in a jug, but has been incontinent over the last 24 hours. His daughter Barbara is at the visit, reports he is better today, suspect he got dehydrated in the context he was in bed most of the day. He had push some fluids, but patient able to say he had not taken a significant amount. Patient's biggest complaint today is actually his left-sided pain. His daughter reports this is not unusual when he is doing poorly to have an exacerbation of his pain. He does have a contracted left arm. He is unable to straighten his left leg today, he is tender to touch with any kind of manipulation of his left leg. He had had some acetaminophen last night with some relief of discomfort. He reports he "feels awful", and attributes this mostly to his achiness and left-sided pain. Past Medical History: Hypertension, CVA in 2006 with left hemiplegia/hemiparesis, history of breast cancer with simple mastectomy on the left, history of first-degree AV block, RBBB, GERD, depression, dysphagia, hyperlipidemia, hypothyroidism, spastic hemiplegia, chronic insomnia, squamous cell carcinoma of the ear Social History - Living Situation Living arrangement: Assisted living Support System: Patient' in past prios daughter Crystal is his DPOA, resides in [place]. She has been visiting on a regular basis, has increased her support with his acute illness. Patient is , he had moved to [facility] living approximately May 2017 after her . He had been cared for by his spouse. Patient with complex history of alcohol abuse Medications/Allergies - Medications Home Medications: Ambulatory Orders Medication Instructions Recorded Confirmed Acetaminophen [Acetaminophen Extra 1,000 mg PO TID MDD NTE 3g 06/17/20 10/26/20 Strength] Atorvastatin Calcium 40 mg PO QPM 06/17/20 10/26/20 Cavilon Durable Barrier 1 applic TP DAILY PRN 06/17/20 10/26/20 Cholecalciferol (Vitamin D3) 1,000 units PO DAILY 06/17/20 10/26/20 [Vitamin D3] Clopidogrel [Plavix] 75 mg PO DAILY 06/17/20 10/26/20 Levothyroxine [Synthroid] 100 mcg PO DAILY 06/17/20 10/26/20 Melatonin 3 mg PO QPM 06/17/20 10/26/20 Mirtazapine [Remeron] 15 mg PO QPM 06/17/20 10/26/20 Multivitamin 1 tab PO DAILY 06/17/20 10/26/20 Vitamin B 6 100 mg PO DAILY 06/17/20 10/26/20 traMADol [Ultram] 50 mg PO Q6H PRN 06/17/20 10/26/20 - Allergies Allergies/Adverse Reactions: Allergies Allergy/AdvReac Type Severity Reaction Status Date / Time No Known Drug Allergies Allergy Verified 06/17/20 12:55 Review of Systems - Constitutional Constitutional: reports: Fatigue, Fever (yesterday 100), Weakness, Weight stable (160lb on 09/24/2020; 159 10/22) - Eyes Eyes: reports: Corrective lenses (for reading; no history of cataract extractio n) - Cardiovascular Cardiovascular: reports: Lightheadedness - Respiratory Respiratory: reports: Cough (occasionally with meals due to dysphagia 2/2 history of CVA). denies: Wheezing, SOB at rest - Gastrointestinal Gastrointestinal: reports: Nausea (mild). denies: Abdominal pain, Constipation (bowel movement every day or every other day with daily prune juice consumption), Vomiting - Genitourinary Genitourinary: reports: Incontinence (uses "jugs" incontinence yesterday) - Musculoskeletal Musculoskeletal: reports: Stiffness (LUE that improves after moving first thing in the morning), Limited range of motion (left arm contracture), Muscle weakness (lower extremities), Assistive devices, Transfer issues - Integumentary Integumentary: denies: Rash - Neurological Neurological: reports: General weakness. denies: Headache, Memory problems - Psychiatric Psychiatric: reports: Depression, Other (Insomnia) - Endocrine Endocrine: reports: Hypothyroidism - All Other Systems All Other Systems: reports: Reviewed and negative Physical Exam - Vital Signs Temperature: 97.7 C Pulse Rate: 74 Respiratory Rate: 18 O2 Saturation: 97 (ra @ rest) - Physical Exam General Appearance: positive: Alert, Mild distress (reports feeling poorly) Eyes Bilateral: positive: Normal inspection ENT: positive: No signs of dehydration Neck: positive: Trachea midline Cardiovascular: positive: Regular rate & rhythm, No murmur Respiratory: positive: No respiratory distress, Diminished throughout Abdomen: positive: Non-tender, Soft, Nml bowel sounds Extremities: positive: No pedal edema Neurologic/Psychiatric: positive: Oriented x3, Weakness (left sided), Depressed mood/affect, Flat affect Palliative Care - POLST Patient has POLST: Yes POLST Status: DNR, Selective Treatment Pain: Pain worsening, Location (left arm and leg), Severity (severe), Pattern (with touch or weightbearing exacerbated), Comment (had gotten relief with APAP last night) Tiredness/Fatigue: Severe (7-10) Drowsiness/Sedation: Moderate (4-6) Nausea: Mild (1-3) Anorexia: Moderate (4-6) Dyspnea: Mild (1-3) Depression: Moderate (4-6) Anxiety: Mild (1-3) Feelings of wellbeing/Perceived Quality of Life: Poor Sleep: Variable sleep pattern (feeling poorly last night) Performance Status: Patient needs assistance particularly right now for maximum assistance [id number] from wheelchair to bed. Patient is able to self feed, but does need meal set up. Daughter is present pushing fluids, and encouraging patient's intake. - Palliative Care Discussion: Given patient's acute on chronic illness, requested we discuss his goals of care. Patient had declined to go to urgent care yesterday, very much wants to avoid the hospital. Asked if he got worse if he would go to the hospital, he reports he would defer to Crystal regarding this. Conversation with Crystal regarding patient's quality of life has continued to deteriorate. Patient is an introvert, difficult relationship with daughter given his history and has not been very forthright about what is most important or how much care or care he would not want. He does have a POLST with DN AR/DNI and selective treatments. We discussed in the context if patient were to have an acute decline in her illness, most likely would not return given his advanced age and comorbidities back to his previous level of functioning. Can continue to weigh decisions as they arise but encouraged to reflect on patient's decl ining quality of life as far as weighing the decisions in the context of prolonging suffering. She does not feel of patient's care needs increased and he had to go to a [facility] that he would find this acceptable quality of life Results - Lab Results Lab and Imaging Results: requested to collect UA/patient unable to urinate at time of visit Impression and Recommendations - Palliative Care Impression: This is an 85-year-old gentleman with history of CVA with left-sided hemiparesis and hemiplegia, presenting with acute symptoms of FUO, myalgias, worsening left- sided pain, and persistent fatigue. Patient without any obvious signs or symptoms of underlying etiology, suspect viral in origin, had home Covid test which tested negative. Palliative care providing acute evaluation, will address symptoms, and continue to monitor. Recommendations/Counseling Done: 1. FUO. Patient afebrile at the time of visit, no acetaminophen since yesterday. Patient most likely with resulting dehydration with feeling poorly yesterday. Does have generalized weakness, myalgias, and persistent fatigue. Will collect a UA to rule out UTI, patient with diminished breath sounds but O2 sats within normal range, no increase in cough. We will continue to monitor as patient has improved since yesterday. 2. Dehydration. Encouraged to push fluids, does have Gatorade and energy drinks available. Did drink 16 ounces during time of visit. Daughter visiting and will continue to encourage intake and make accessible. 3. Left-sided arm and leg pain. Patient historically does have exacerbation of pain on left side with acute illness or feeling poorly. We will go ahead and schedule acetaminophen 1000 mg 3 times daily for 5 days for comfort. Did check with TSO3, no tramadol in drawer, will order 50 mg every 6 hours as needed moderate to severe pain. 4. Advanced care planning. Patient with long-term debility, sequela from stroke, worsening quality of life. Patient somewhat ambivalent regarding goals of care in the context of wanting to pursue further work-up. Patient is quite resistant to leaving the facility, declined to go to urgent care, will default to daughter's decision. Counseling provided regarding the daughter weighing benefits and burdens in the context of his quality of life, will continue to monitor if declines will need to revisit goals of care. 45 minutes with greater than 50% of this time in counseling and coordination of care with staff, daughter, examination of patient, medications ordered and anticipatory guidance provided Disclaimer; this chart note was formulated using voice recognition technology and unfortunately sound alike errors may occur
== END 2020-10-26 09:31 | disposition home or self-care (01) ==
LOC: PC 09:30
PROVIDERS: ATTEND Nurse Practitioner Adult Health
DX: Z51.5 Encounter for palliative care (principal); R50.9 Fever, unspecified; I69.354 Hemiplegia and hemiparesis following cerebral infarction affecting left non-dominant side; I69.391 Dysphagia following cerebral infarction; R13.10 Dysphagia, unspecified; R53.1 Weakness; M79.10 Myalgia, unspecified site; R53.83 Other fatigue; E86.0 Dehydration; M79.602 Pain in left arm; M79.605 Pain in left leg; Z66 Do not resuscitate

== ENCOUNTER 2020-10-27 08:00 | Outpatient (CLI) | payer MEDICARE, OTHER ==
[2020-10-27 19:54] LABS: BILIRUBIN,URINE NEGATIVE (NEGATIVE); GLUCOSE, URINE (UA) NEGATIVE (NEGATIVE); KETONES,URINE (UA) NEGATIVE (NEGATIVE); LEUKOCYTE ESTERASE, URINE MODERATE (NEGATIVE); NITRITE,URINE POSITIVE (NEGATIVE); OCCULT BLOOD,URINE TRACE-INTA (NEGATIVE); PH,URINE 5.5 PH (5.0-7.5); PROTEIN,URINE TRACE mg/dL (NEGATIVE); UROBILINOGEN,URINE 0.2 (NORMAL) E.U./dL (NORMAL)
[2020-10-27 20:00] LABS: BACTERIA,URINE Many /HPF (None Seen); CLARITY,URINE CLOUDY (CLEAR); RBC,URINE 0-5 /HPF (0-5); SQUAMOUS EPITHELIAL CELL,UR FEW Squamous (<= Few); WBC,URINE >25 /HPF (0-3)
== END 2020-10-27 23:59 | disposition home or self-care (01) ==
LOC: LAB.S 08:00
PROVIDERS: ATTEND Nurse Practitioner Adult Health
DX: R30.0 Dysuria (principal)
CPT/HCPCS: 81001; 81003; 87077; 87086; 87181

== ENCOUNTER 2020-11-02 10:50 | Outpatient (CLI) | payer MEDICARE, OTHER ==
--- NOTE | 2020-11-02 16:39 | CONSULTATION NOTE ---
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 He was last seen and evaluated on 10/26/2020 for decline in functional status, inability bear weight, and generalized pain. He was initiated on [id number] acetaminophen for 5 days that has subsequently been discontinued and a UA was obtained that demonstrated E. coli greater than 100,000 CFU per mL and was keith tameka with a course of Macrobid. The patient's daughter/DPOABarbara is present. She reports that initially, the patient was doing better on the antibiotic therapy and then by the weekend he was much worse. His temperature fluctuated over the weekend. Yesterday, he was "in bad shape" and she requested that the Macrobid be discontinued. The patient had a 4-day course of Macrobid. She did also contact the on-call provider for the patient's medical group and recommendations were made to either go to urgent care or be seen in the emergency department which the patient of adamantly refused. Today, his temperature has stabilized and he is doing better per not only his report but his daughter as well. Over the weekend he was reporting his legs and arms were causing increased discomfort. As needed acetaminophen was being provided that was not giving relief. He also received tramadol without much relief at that time. He is reporting he is having decreased discomfort to his legs and arms. He continues to remain in bed with decreased overall oral intake. He would likely benefit from IV hydration however, he continues to decline leaving the facility. Will make recommendations that the staff at the facility assist with oral hydration. He has not had any emesis today. He continues to void. Prior to today the patient was having episodes of incontinence per the daughter's report. Today he was able to void in his urinal and the daughter reports it was dark yellow with no evidence of hematuria. The patient did roll out of bed this morning as he was laid on his right side and there are no bed rails and he is not in hospital bed. He denies any headache or dizziness. He refused being seen in the emergency department. Since being off of the Macrobid, the patient is more cognitively clear and visually appears improved per the daughter's report and the patient himself. Feels better. He reports her last having a bowel movement approximately 2 days ago. The patient is seen resting in his bed. Does not appear to be flushed no evidence of diaphoresis. His lips are slightly dry. No evidence of acute distress. 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 Not COVID-19 vaccinated. Social History - Living Situation Living arrangement: Assisted living Support System: The patient grew up in [facility]. He and his and moved to [place], [place] for his job. 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 He and his had 2 children, a son and daughter. The patient's daughter, Barbara is his DP OA and resides in [place] with contact number [phone]. The patient is . He moved into [facility] assisted living in approximately May 2017. The patient's spouse cared for him after he sustained a stroke in 2005--he moved into [facility] after his 's . The patient was a very active individual until he sustained his stroke. Medications/Allergies - Medications Home Medications: Ambulatory Orders Medication Instructions Recorded Confirmed Acetaminophen [Acetaminophen Extra 500 mg PO QID MDD NTE 3g 06/17/20 10/26/20 Strength] Cavilon Durable Barrier 1 applic TP DAILY PRN 06/17/20 10/26/20 Cholecalciferol (Vitamin D3) 1,000 units PO DAILY 06/17/20 10/26/20 [Vitamin D3] Clopidogrel [Plavix] 75 mg PO DAILY 06/17/20 10/26/20 Levothyroxine [Synthroid] 100 mcg PO DAILY 06/17/20 10/26/20 Melatonin 3 mg PO QPM 06/17/20 10/26/20 Mirtazapine [Remeron] 15 mg PO QPM 06/17/20 10/26/20 Multivitamin 1 tab PO DAILY 06/17/20 10/26/20 Vitamin B 6 100 mg PO DAILY 06/17/20 10/26/20 traMADol [Ultram] 50 mg PO Q6H PRN 06/17/20 10/26/20 - Allergies Allergies/Adverse Reactions: Allergies Allergy/AdvReac Type Severity Reaction Status Date / Time nitrofurantoin AdvReac Cramps Verified 11/02/20 16:50 [From Macrobid] Review of Systems - Constitutional Constitutional: reports: Fatigue, Weakness, Poor appetite. denies: Fever - Eyes Eyes: reports: Corrective lenses (for reading; no history of cataract extraction) - Ears, Nose & Throat Ears, Nose & Throat: reports: Dry mouth - Cardiovascular Cardiovascular: denies: Chest pain, Edema - Respiratory Respiratory: denies: Wheezing, SOB at rest - Gastrointestinal Gastrointestinal: denies: Abdominal pain, Constipation (bowel movement every day or every other day with daily prune juice consumption), Vomiting (yesterday had episode of emesis) - Genitourinary Genitourinary: reports: Incontinence (improved to using his urinal today). denies: Dysuria, Frequency, Hematuria - Musculoskeletal Musculoskeletal: reports: Stiffness (LUE that improves after moving first thing in the morning), Limited range of motion (left arm contracture), Muscle weakness (lower extremities), Assistive devices, Transfer issues (Full person assistance to lift and transfer presently per daughter) - Integumentary Integumentary: denies: Rash - Neurological Neurological: reports: General weakness, Other (had myalgia over the weekend). denies: Headache, Memory problems - Psychiatric Psychiatric: reports: Depression, Other (Insomnia) - Endocrine Endocrine: reports: Hypothyroidism - All Other Systems All Other Systems: reports: Reviewed and negative (ROS supplemented by CHRIS Lock and daughter/GREGG Jimenez) Physical Exam - Vital Signs Temperature: 36.7 C Pulse Rate: 56 O2 Saturation: 95 (on RA) Blood Pressure: 146/59 (right wrist) - Physical Exam General Appearance: positive: No acute distress, Alert Eyes Bilateral: positive: Normal inspection, PERRL ENT: positive: Other (slightly dry mucous membranes) Neck: positive: Trachea midline Cardiovascular: positive: No murmur, Bradycardia Respiratory: positive: No respiratory distress, Diminished in bases Abdomen: positive: Non-tender, Soft, Nml bowel sounds. negative: Distended Skin: positive: Pallor Extremities: positive: No pedal edema Neurologic/Psychiatric: positive: Oriented x3 (clearly able to state date, time, state, name, place of residence and president.), Weakness (left sided predominant and generalized presently. BLE 3/5 muscle strength with slightly more strength on RLE vs LLE.), Depressed mood/affect, Flat affect Palliative Care - POLST Patient has POLST: Yes POLST Status: DNR, Selective Treatment Pain: Comment (Generalized pain, improved but would benefit from restarting scheduled APAP. No longer having pain with touch or neuropathy per patient and daughter report.) Tiredness/Fatigue: Moderate (4-6) Drowsiness/Sedation: Moderate (4-6) Nausea: None Anorexia: Mild (1-3) Dyspnea: None Depression: Moderate (4-6) Sleep: Variable sleep pattern Performance Status: Requiring maximum assistance from leaving the bed to his wheelchair. He is able to self feed but needs meal set up. Daughter continues to be present providing assistance and encouraging fluid and meal intake. - Palliative Care Discussion: Patient displays acute on chronic illness with diagnosis of urinary tract infection and was initiated on Macrobid 100 mg twice daily x5 days and only completed a 4-day course as likely demonstrated reaction to Macrobid therapy and was completed at the 4-day james. His urine culture demonstrated E. coli greater than 100,000 CFU per mL with full sensitivity to antibiotic panel. Since discontinuation of Macrobid. The patient is reporting improvement and this is supplemented by the patient's daughter/DPOA. Throughout this course of illness the patient has been adamant that he does not wish to leave the facility environment to be seen at urgent care or in the emergency department. In light of this, lengthy discussion had with the patient's daughter/DPOA and the patient himself regarding his quality of life and expectations moving forward so that the patient's daughter has direction if his health were to further deteriorate. The patient remains quite adamant that he wishes to remain out of the emergency department and to remain in his apartment. Discussed that given the patient's chronic comorbidities with acute illnesses it is unlikely that the patient would return back to his previous baseline function and the patient's daughter recognizes this but continues to wish to remain optimistic that the patient himself will be able to return close to his baseline function. Discussion had obtaining a hospital bed for increased ease of caregiving function and for the patient himself and daughter to look into this. Patient is amenable. Also discussed obtainment of caregiving support within the facility environment at this the patient's daughter could not always be present to supplement the caregivers within the facility. Given recognizing that the patient does not wish to leave the facility environment and if his health were to further deteriorate the patient is agreeable to transitioning to hospice services if it were to be appropriate. The patient's spouse was on hospice services before her . Of note, the patient and his daughter have a complex relationship and his daughter addresses the patient by his first name. Results - Lab Results Lab results reviewed: Yes Lab and Imaging Results: 10/27/2020 Urine Culture E.coli >100,000 cfu/mL Impression and Recommendations - Palliative Care Impression: This is an 85-year-old gentleman with history of CVA with residual effects of left-sided hemiparesis and hemiaplasia status post UTI with continued myalgias that are improving and generalized weakness in the setting of dehydration. Patient has remained quite adamant that he does not wish to seek evaluation outside of the facility environment and daughter is honoring these wishes. Suspect the patient potentially had an adverse reaction to the Macrobid and therefore will add to his list of allergies and request of the facility does as well. Slowly making some improvement since yesterday. Palliative care will c ontinue to provide symptom management, care coordination, anticipatory guidance and a transition to hospice services when medically appropriate. Recommendations/Counseling Done: 1. Myalgias. Improving. Initiate acetaminophen 500 mg 1 tablet 4 times daily for pain x2 weeks. Potential for atorvastatin contributing and given time to benefit and patient's advanced age and comorbidities recommendation made to discontinue and patient and daughter/DPOA and agreement. Potential for Macrobid contributing to ALEJANDRO as well as dehydration resulting myalgias. Expect gradual, continued improvement with the patient off of Macrobid and encouragement of oral hydration. 2. Acute cystitis. Status post Macrobid. Patient had urine culture demonstrating E. coli greater than 100,000 CFU per mL. Without urinary complaints. No further interventions at this time. Continue to encourage oral hydration. 3. Dehydration. Continue to encourage oral hydration. Daughter to continue to provide encouragement and make liquids accessible. Requested that facility offer 140 mL of fluids 4 times a day with each medication pass to further push oral hydration. 4. Generalized weakness. Exacerbated by recent acute illness with history of CVA with residual left-sided hemiparesis and hemiplasia. Continues to require assistance with getting out of bed. Made recommendation for obtainment of hospital bed and patient and daughter are agreeable. Provided recommendations and resources for patient's daughter for obtainment of a hospital bed moving forward. If patient continues to display increased caregiving needs then will need to look into obtainment of private caregiving support can patient's daughter/DPOA aware of this in order for the patient to remain in his prefers setting and home of [facility]. 5. Advanced care planning. Patient with long-term debility, sequelae from CVA with poor quality of life. Patient is quite clear that he does not wish t ransfer to higher level of care for evaluation such as the emergency department and wishes to remain in the facility. Discussed with the patient and daughter if continued demonstration of overall decline then would be appropriate to transition to hospice services to have an extra added layer of support within the facility environment and both patient and daughter are agreeable to this in the future. Counseling provided to the patient's daughter weighing benefits versus burdens of interventions and grateful for direction from the patient himself in order to honor his wishes for his goals moving forward. Total time spent 60 minutes with greater than 50% of the spent in counseling coordination of care with the staff, daughter, son-in-law and patient; examination patient; medications reviewed; supportive listening; symptom management and anticipatory guidance. Disclaimer: The chart note was formulated using voice recognition technology and unfortunately sound alike errors may occur.
== END 2020-11-02 10:51 | disposition home or self-care (01) ==
LOC: PC 10:50
PROVIDERS: ATTEND Nurse Practitioner Family
DX: Z51.5 Encounter for palliative care (principal); N30.00 Acute cystitis without hematuria; E86.0 Dehydration; R53.1 Weakness; I69.354 Hemiplegia and hemiparesis following cerebral infarction affecting left non-dominant side; I10 Essential (primary) hypertension; M79.10 Myalgia, unspecified site; F32.9 Major depressive disorder, single episode, unspecified; Z79.02 Long term (current) use of antithrombotics/antiplatelets; Z79.899 Other long term (current) drug therapy; Z99.3 Dependence on wheelchair; Z87.898 Personal history of other specified conditions; Z66 Do not resuscitate

== ENCOUNTER 2020-11-06 14:56 | Outpatient (CLI) | payer MEDICARE, OTHER | END 2020-11-06 14:57 | disposition critical access hospital (66) | LOC: EMS 14:56 | DX: R79.81 Abnormal blood-gas level (principal); R53.1 Weakness | CPT/HCPCS: A0425; A0429 ==

== ENCOUNTER 2020-11-06 15:31 | Inpatient (IN) | payer MEDICARE, OTHER ==
[2020-11-06] MEDS ORDERED: ALBUTEROL NEB 2.5 MG/3 ML INH STA (15:47)
[2020-11-06] MEDS ORDERED: cefTRIAXone 1 GM VIAL IVP STA (15:47)
--- NOTE | 2020-11-06 15:55 | ED Physician Documentation ---
PD HPI DYSPNEA - Stated complaint Stated Complaint: HYPOXIA - Chief complaint Chief Complaint: Resp - History obtained from History obtained from: Patient, Family, EMS - History of Present Illness Timing - onset: How many days ago (few days of worsening dyspnea. Report from caregivers at [facility] is he did have vomiting episode 3 days ago, and then developed some cough and dyspnea the past few days. Also with swelling right side of face for few days. Seen in Walk In and referred here.) Timing - onset during: Rest Timing - duration: Days (3) Timing - details: Gradual onset, Still present Inciting event(s): Other (vomting epidose 3 days ago, possible aspiration. Right facial swelling so also concern for abscess.). No: URI Improved by: O2 (at [facility], had sats of 88% on RA, better with oxygen. Also with tachypnea and coarse sounds left side.) Worsened by: Laying flat, Coughing Associated symptoms: Cough, Wheezing, Other (He is not COVID vaccinated, had refused it.). No: Fever, Chest pain / discomfort, Bilateral edema Similar symptoms before: Has not had sx before Recently seen: Clinic (Walk In today prior to transferring to ER by EMS.) Review of Systems Constitutional: denies: Fever Nose: denies: Rhinorrhea / runny nose, Congestion Throat: reports: Oral lesions / sores (right cheek/face pain and swelling.) Cardiac: denies: Chest pain / pressure Respiratory: reports: Dyspnea, Cough GI: reports: Vomiting (once 3 days ago). denies: Abdominal Pain, Nausea : reports: Incontinent. denies: Dysuria Skin: reports: Rash (redness right face/cheek). denies: Lesions Musculoskeletal: denies: Neck pain, Back pain Neurologic: reports: Focal weakness (left sided from prior stroke, baseline weakness.) Endocrine: reports: Weight loss PD PAST MEDICAL HISTORY - Past Medical History Cardiovascular: High cholesterol Respiratory: None, Other (hay fever) Neuro: CVA (2005), Other (L side hemiparesis and hemiplegia s/p CVA. 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) Psych: Depression Musculoskeletal: Hemiplegia (Left side, s/p CVA) - Present Medications Home Medications: Ambulatory Orders Medication Instructions Recorded Confirmed Acetaminophen [Acetaminophen Extra 500 mg PO QID MDD NTE 3g 06/17/20 11/06/20 Strength] Cavilon Durable Barrier 1 applic TP DAILY PRN 06/17/20 11/06/20 Cholecalciferol (Vitamin D3) 1,000 units PO DAILY 06/17/20 11/06/20 [Vitamin D3] Clopidogrel [Plavix] 75 mg PO DAILY 06/17/20 11/06/20 Levothyroxine [Synthroid] 100 mcg PO DAILY 06/17/20 11/06/20 Melatonin 3 mg PO QPM 06/17/20 11/06/20 Mirtazapine [Remeron] 15 mg PO QPM 06/17/20 11/06/20 Multivitamin 1 tab PO DAILY 06/17/20 11/06/20 Vitamin B 6 100 mg PO DAILY 06/17/20 11/06/20 traMADol [Ultram] 50 mg PO Q6H PRN 06/17/20 11/06/20 - Allergies Allergies/Adverse Reactions: Allergies Allergy/AdvReac Type Severity Reaction Status Date / Time nitrofurantoin AdvReac Cramps Verified 11/06/20 15:39 [From Macrobid] - Living Situation Living Situation: reports: Alone Living Arrangement: reports: Assisted living ([facility]), Other (nonambulatory; need mobility by wheelchair.) - Social History Does the pt smoke?: No Does the pt drink ETOH?: No - Family History Family history: reports: CAD - POLST Patient has POLST: Yes POLST Status: DNR (He is on Palliative Care service ([facility]) last note 10/27/20. If declining, consider moving to Hospice.) PD ED PE NORMAL - Vitals Vital signs reviewed: Yes - General General: Alert and oriented X 3, Well developed/nourished, Other (tachypnea, without accessory muscle use. ) - HEENT HEENT: Other (redness and swelling right cheek soft tissue. Parotid with swelling and tender and some purulence can be expressed. ) - Neck Neck: Supple, no meningeal sign, Other (right anterior mild fullness of soft tissue, extends from right cheek area. ) - Cardiac Cardiac: RRR, No murmur - Respiratory Respiratory: No respiratory distress (breathing fast but no retractions nor apparent air hunger. Resting semi-reclined comfortably. ). No: Clear bilaterally (coarse left upper area. ) - Abdomen Abdomen: Soft, Non tender - Male Male : Deferred - Rectal Rectal: Deferred - Back Back: No CVA TTP - Derm Derm: Normal color, Warm and dry - Extremities Extremities: No tenderness to palpate, No edema, No calf tenderness / cord - Neuro Neuro: Alert and oriented X 3, Normal speech, Other (left sided weakness from prior CVA.) Eye Opening: Spontaneous Motor: Obeys Commands Verbal: Oriented GCS Score: 15 Results - Vitals Vitals: Vital Signs - 24 hr 11/06/20 11/06/20 11/06/20 15:34 16:15 16:21 Temperature 36.7 C Heart Rate 74 67 62 Respiratory 22 24 29 H Rate Blood Pressure 129/68 121/66 O2 Saturation 95 100 11/06/20 11/06/20 11/06/20 16:51 17:00 17:30 Temperature Heart Rate 61 66 64 Respiratory 24 27 H 18 Rate Blood Pressure 122/68 131/64 H 125/62 O2 Saturation 98 98 98 Oxygen O2 Source Nasal cannula Oxygen Flow Rate 2 - Labs Labs: Microbiology 11/06/20 16:04 Wound Culture - Preliminary Mouth Laboratory Tests 11/06/20 11/06/20 11/06/20 16:01 16:01 16:01 WBC 29.5 H RBC 5.00 Hgb 15.9 Hct 46.0 MCV 92.0 MCH 31.8 H MCHC 34.6 RDW 13.2 Plt Count 434 MPV 10.5 Neut # (Auto) Not Reportable Lymph # (Auto) Not Reportable Aiken # (Auto) Not Reportable Eos # (Auto) Not Reportable Baso # (Auto) Not Reportable Absolute Nucleated RBC Not Reportable Total Counted 100 Band Neuts % (Manual) 2 Abnorm Lymph % (Manual) 0 Nucleated RBC % Not Reportable Neutrophils # (Manual) 26.8 H Lymphocytes # (Manual) 0.9 L Monocytes # (Manual) 1.8 H Eosinophils # (Manual) 0.0 Basophils # (Manual) 0.0 Differential Comment MANUAL DIFFERENTIAL WBC Morphology NORMAL APPEARANCE Platelet Estimate NORMAL (130-450,000) Platelet Morphology NORMAL APPEARANCE RBC Morph Micro Appear NORMAL APPEARANCE Sodium 138 Potassium 4.9 Chloride 102 Carbon Dioxide 18 L Anion Gap 18.0 H BUN 38 H Creatinine 1.5 H Estimated GFR (MDRD) 44 L Glucose 128 H Lactic Acid Calcium 8.7 Total Bilirubin 1.8 H AST 47 H ALT 49 Alkaline Phosphatase 87 B-Natriuretic Peptide 363 H Total Protein 8.9 H Albumin 3.5 Globulin 5.4 H Albumin/Globulin Ratio 0.6 L Lipase 20 L Nasal Adenovirus (PCR) Nasal B. parapertussis DNA (PCR) Nasal Coronavir 229E PCR Nasal Coronavir HKU1 PCR Nasal Coronavir NL63 PCR Nasal Coronavir OC43 PCR Nasal Enterovir/Rhinovir PCR Nasal Influenza B PCR Nasal Influenza A PCR Nasal Parainfluen 1 PCR Nasal Parainfluen 2 PCR Nasal Parainfluen 3 PCR Nasal Parainfluen 4 PCR Nasal RSV (PCR) Nasal B.pertussis DNA PCR Nasal C.pneumoniae (PCR) Yonatan Human Metapneumo PCR Nasal M.pneumoniae (PCR) Nasal SARS-CoV-2 (PCR) 11/06/20 11/06/20 16:01 16:07 WBC RBC Hgb Hct MCV MCH MCHC RDW Plt Count MPV Neut # (Auto) Lymph # (Auto) Aiken # (Auto) Eos # (Auto) Baso # (Auto) Absolute Nucleated RBC Total Counted Band Neuts % (Manual) Abnorm Lymph % (Manual) Nucleated RBC % Neutrophils # (Manual) Lymphocytes # (Manual) Monocytes # (Manual) Eosinophils # (Manual) Basophils # (Manual) Differential Comment WBC Morphology Platelet Estimate Platelet Morphology RBC Morph Micro Appear Sodium Potassium Chloride Carbon Dioxide Anion Gap BUN Creatinine Estimated GFR (MDRD) Glucose Lactic Acid 2.3 H Calcium Total Bilirubin AST ALT Alkaline Phosphatase B-Natriuretic Peptide Total Protein Albumin Globulin Albumin/Globulin Ratio Lipase Nasal Adenovirus (PCR) NOT DETECTED Nasal B. parapertussis DNA (PCR) NOT DETECTED Nasal Coronavir 229E PCR NOT DETECTED Nasal Coronavir HKU1 PCR NOT DETECTED Nasal Coronavir NL63 PCR NOT DETECTED Nasal Coronavir OC43 PCR NOT DETECTED Nasal Enterovir/Rhinovir PCR NOT DETECTED Nasal Influenza B PCR NOT DETECTED Nasal Influenza A PCR NOT DETECTED Nasal Parainfluen 1 PCR NOT DETECTED Nasal Parainfluen 2 PCR NOT DETECTED Nasal Parainfluen 3 PCR NOT DETECTED Nasal Parainfluen 4 PCR NOT DETECTED Nasal RSV (PCR) NOT DETECTED Nasal B.pertussis DNA PCR NOT DETECTED Nasal C.pneumoniae (PCR) NOT DETECTED Yonatan Human Metapneumo PCR NOT DETECTED Nasal M.pneumoniae (PCR) NOT DETECTED Nasal SARS-CoV-2 (PCR) DETECTED A - Rads (name of study) chest xray Radiology: Prelim report reviewed (bilateral infiltrate. ), See rad report neck CT/face Radiology: Prelim report reviewed (parotid inflammation, no abscess; no neck abscess), See rad report chest CT Radiology: Prelim report reviewed (bilateral infiltrates c/w aspiration or viral pneumonia), See rad report PD MEDICAL DECISION MAKING - ED course Complexity details: reviewed old records (Palliative Care note as well as POLST. ), reviewed results, re-evaluated patient, considered differential, d/w patient, d/w information resource consultant (Hospitalist) Departure - Departure Disposition: 66 [facility] DC/Xfer Clinical Impression: Infection of parotid gland, Pneumonia due to COVID-19 virus, Tachypnea Dyspnea Qualifiers: Dyspnea type: shortness of breath Qualified Code(s): R06.02 - Shortness of breath Sepsis Qualifiers: Sepsis type: sepsis due to unspecified organism Sepsis acute organ dysfunction status: without acute organ dysfunction Qualified Code(s): A41.9 - Sepsis, unspecified organism Condition: Stable Record reviewed to determine appropriate education?: Yes
[2020-11-06] MEDS ORDERED: IOVERSOL 320 100 ML VIAL IVP ONE ×2 (15:56→17:21)
[2020-11-06 16:08] LABS: BASOPHILS % (AUTO) 0.3 %; EOSINOPHILS % (AUTO) 0.1 %; HGB - HEMOGLOBIN 15.9 g/dL (14.0-18.0); LYMPHOCYTES % (AUTO) 2.9 %; MEAN CORPUSCULAR HEMOGLOBIN 31.8 pg (27.0-31.0); MEAN CORPUSCULAR HGB CONC 34.6 g/dL (32.0-36.0); MEAN PLATELET VOLUME 10.5 fL (7.4-11.4); MONOCYTES % (AUTO) 6.1 %; NEUTROPHILS % (AUTO) 87.9 %; PLT - PLATELET COUNT 434 10^3/uL (130-450); RED CELL DISTRIBUTION WIDTH 13.2 % (12.0-15.0); WHITE BLOOD COUNT 29.5 x10^3/uL (4.8-10.8)
[2020-11-06 16:15] LABS: ABNORMAL LYMPHS % (MANUAL) 0 %
[2020-11-06 16:22] LABS: ALBUMIN 3.5 g/dL (3.2-5.5); ALBUMIN/GLOBULIN RATIO 0.6 (1.0-2.2); BILIRUBIN,TOTAL 1.8 mg/dL (0.2-1.0); CALCIUM 8.7 mg/dL (8.5-10.3); CREATININE 1.5 mg/dL (0.6-1.2); POTASSIUM 4.9 mmol/L (3.5-5.0); TOTAL PROTEIN 8.9 g/dL (6.7-8.2)
[2020-11-06 16:32] LABS: BAND NEUTROPHILS % (MANUAL) 2 %; DIFFERENTIAL COMMENT MANUAL DIFFERENTIAL; LYMPHOCYTES # (MANUAL) 0.9 10^3/uL (1.5-3.5); LYMPHOCYTES % (MANUAL) 3 %; MONOCYTES # (MANUAL) 1.8 10^3/uL (0.0-1.0); NEUTROPHILS # (MANUAL) 26.8 10^3/uL (1.5-6.6); PLATELET ESTIMATE, MANUAL NORMAL (130-450,000) (NORMAL); PLATELET MORPHOLOGY NORMAL APPEARANCE (NORMAL); RBC MORPHOLOGY (MULTIPLE) NORMAL APPEARANCE (NORMAL); WBC MORPHOLOGY (MULTIPLE) NORMAL APPEARANCE (NORMAL)
--- NOTE | 2020-11-06 16:35 | XRAY Report ---
PROCEDURE: Chest 1 View X-Ray INDICATIONS: dyspnea and tachypnea TECHNIQUE: One view of the chest was acquired. COMPARISON: None FINDINGS: Surgical changes and devices: None. Lungs and pleura: No pleural effusions or pneumothorax. Increased appearance of retrocardiac opacity . Small areas of patchy right basilar opacity are also present. Mediastinum: Mediastinal contours appear normal. Heart size is normal. Bones and chest wall: No suspicious bony lesions. Overlying soft tissues appear unremarkable. IMPRESSION: Appearance of increased retrocardiac and right basilar opacities suspicious for pneumonia. Recommend interval follow-up to document resolution and exclude presence of underlying mass lesion. There is a superimposed atelectasis and/or edema cannot be excluded. Reviewed by: Nidia Pendleton MD on 11/06/2020 4:34 PM PDT Approved by: Nidia Pendleton MD on 11/06/2020 4:34 PM PDT Station ID: [id number]
[2020-11-06] MEDS ORDERED: CLINDAMYCIN 600 MG/50 ML 50 ML IV ONE (16:36)
[2020-11-06] MEDS ORDERED: SODIUM CHLORIDE 0.9% 1,000 ML IV STA (16:45)
[2020-11-06 17:11] LABS: B. PARAPERTUSSIS- RESP PCR PAN NOT DETECTED; B. PERTUSSIS- RESP PCR PANEL NOT DETECTED; C. PNEUMONIAE- RESP PCR PANEL NOT DETECTED; CORONAVIRUS 229E-RESP PCR NOT DETECTED; CORONAVIRUS HKU1-RESP PCR NOT DETECTED; CORONAVIRUS NL63-RESP PCR NOT DETECTED; CORONAVIRUS OC43-RESP PCR NOT DETECTED; HUMAN METAPNEUMOVIRUS NOT DETECTED; INFLUENZA A- RESP PCR PANEL NOT DETECTED; INFLUENZA B - RESP PCR PANEL NOT DETECTED; M. PNEUMONIAE- RESP PCR PANEL NOT DETECTED; PARAINFLUENZA VIRUS 1 NOT DETECTED; PARAINFLUENZA VIRUS 2 NOT DETECTED; PARAINFLUENZA VIRUS 3 NOT DETECTED; PARAINFLUENZA VIRUS 4 NOT DETECTED; RHINOVIRUS/ENTEROVIRUS NOT DETECTED; RSV- RESP PCR PANEL NOT DETECTED; SARS-CoV-2 -RESP PCR PANEL DETECTED
--- NOTE | 2020-11-06 17:22 | CT Report ---
PROCEDURE: SOFT TISSUE NECK W INDICATIONS: parotid infection and right neck swelling CONTRAST: IV CONTRAST: Optiray 320 ml: 100 PO CONTRAST: *NO PO CONTRAST TECHNIQUE: After the administration of intravenous contrast, 3.0 mm axial sections acquired from the sella to th e aortic arch. Additional oblique axial 3.0 mm sections acquired through the pharynx. 3 mm thick co leticia reformats were generated. For radiation dose reduction, the following was used: automated exp osure control, adjustment of mA and/or kV according to patient size. COMPARISON: None. FINDINGS: Image quality: Excellent. Lymph nodes: No enlarged lymph nodes seen throughout the neck. Vessels: Visualized vasculature appears patent. Neck spaces: The oropharynx, nasopharynx, and pharynx demonstrate no mucosal lesions. The vocal cor ds, false vocal cords, pyriform sinuses, epiglottis, vallecula, and tongue base all appear normal. In flammatory changes noted in the right face and neck soft tissues adjacent to the right parotid gland. Glands: Right parotid gland is enlarged compatible with history of peritonitis. Stones identified i n the right parotid gland. No right parotid ductal dilatation. No parotid abscess. The left parotid a nd submandibular glands appear normal. The thyroid is normal in size and there are no incidental fin dings. Miscellaneous: Visualized brain and orbits appear normal. Lung apices appear clear. Superficial so ft tissues appear normal. Bones: No suspicious bony lesions. Spine degenerative disc disease and facet arthropathy are noted. Visualized sinuses and mastoids appear unremarkable. IMPRESSION: 1. Inflammation and enlargement of the right parotid gland compatible with ported history of parotid infection. 2. No abscess. Reviewed by: Jyoti Harris MD, PhD on 11/06/2020 5:20 PM PDT Approved by: Jyoti Harris MD, PhD on 11/06/2020 5:20 PM PDT Station ID: [id number]
--- NOTE | 2020-11-06 17:28 | CT Report ---
PROCEDURE: CHEST W INDICATIONS: eval for bronchial/lung abscess/infection CONTRAST: IV CONTRAST: Optiray 320 ml: 100 PO CONTRAST: *NO PO CONTRAST TECHNIQUE: After the administration of intravenous contrast, 1 mm axial images were acquired from the pulmonary apices through the posterior costophrenic angles. Axial 5 mm soft tissue kernel reconstructions were performed as well as 8 mm axial MIP and coronal and sagittal 5 mm reformations. For radiation dose reduction, the following was used: automated exposure control, adjustment of mA and/or kV according to patient size. COMPARISON: None. FINDINGS: Image quality: Excellent. Lungs and pleura: Patchy consolidation noted in the lung bases bilaterally, left greater than right w hich is stable compared to plain from radiograph. No pleural effusions or pneumothorax. Central and peripheral airways are patent and normal in caliber. Mediastinum: Heart size is normal. Aortic valve and mitral annulus calcifications. Atherosclerotic c alcifications noted in the aorta, great vessels and coronary vasculature. No pericardial effusion. No mediastinal or hilar adenopathy by size criteria. Thoracic aorta and central pulmonary arteries a re normal in size. Esophagus is normal in caliber. No hiatal hernia. Bones and chest wall: No suspicious bony lesions. No vertebral body compression fractures. No axil nikita or supraclavicular adenopathy by size criteria. The thyroid is normal in size and there are no incidental findings.. Abdomen: Visualized upper abdominal solid organs appear normal. Upper abdominal bowel loops are nor mal in caliber. IMPRESSION: 1. Bibasilar lung consolidation stable compared to plain from radiographs. Finding could represent as piration or pneumonia. Recommend repeat imaging to resolution the finding to exclude underlying neopl astic process. 2. No abscess. Reviewed by: Jyoti Harris MD, PhD on 11/06/2020 5:26 PM PDT Approved by: Jyoti Harris MD, PhD on 11/06/2020 5:26 PM PDT Station ID: [id number]
[2020-11-06] MEDS ORDERED: ACETAMINOPHEN 325 MG TABLET PO PRN (18:10)
[2020-11-06] MEDS ORDERED: ONDANSETRON 4 MG/2 ML VIAL IVP PRN (18:10)
[2020-11-06] MEDS ORDERED: AZITHROMYCIN INJ 500 MG in SODIUM CHLORIDE 0.9% 250 ML IV SCH (18:45)
--- NOTE | 2020-11-06 18:47 | PHARMACY PROGRESS NOTE ---
- Best Possible Medication History Admit Date and Time: 11/06/201809 Processed by: Nursing Medication History completed: Yes Patient Interview: Completed (med rec completed by nursing) As the person ultimately responsible for medication therapy, providers are able to order a medication from an existing home medication list in [facility] via the "Reconcile Routine" prior to Confirmation of that medication by patient support assistant. Such practice is discouraged except when the physician, in their clinical judgment, deems that a medical need exists for a medication without regard to previous use.
[2020-11-06] MEDS ORDERED: DEXTROSE 5%-0.45% NACL 1,000 ML IV SCH (19:00)
[2020-11-06] MEDS ORDERED: PIPERACILLIN/TAZOBACTAM 3.375 GM in SODIUM CHLORIDE 0.9% MINIBAG 100 ML IV SCH ×4 (19:00)
[2020-11-06] MEDS ORDERED: LORazepam 2 MG/ML VIAL IVP PRN (20:45)
[2020-11-06] MEDS ORDERED: MORPHINE SOL 10 MG/0.5 ML ORAL SYRINGE SL PRN (20:45)
[2020-11-06] MEDS ORDERED: GLYCOPYRROLATE 1 MG/5 ML VIAL SUBQ PRN (20:45)
[2020-11-06] MEDS ORDERED: CARBOXYMETHYLCELLULOSE OPHTH DROPS EACHEYE PRN (20:45)
[2020-11-06] MEDS ORDERED: ACETAMINOPHEN 160 MG/5 ML SUSP UDC PO PRN (20:45)
--- NOTE | 2020-11-06 21:16 | HISTORY & PHYSICAL EXAMINATION ---
Chief Complaint - Chief Complaint Chief Complaint: Lethargy, intermittent fever, cough and congestion History of Present Illness - Admitted From Admitted From:: [facility] via walk in clinic with EMS - History Obtained From Records Reviewed: [facility] History obtained from: Daughter, Lexis López, and patient Exam Limitations: severe fatigue, cough - History of Present Illness HPI Comment/Other: The patient is an 85-year-old white male who has been living in an assisted living facility since 2005. Prior to that he was living in [facility]. He came to the [facility] because his had . She had in hospice care. He spends most of his time in a wheelchair in his room. He is reclusive. 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 He has had physical therapy in the past. Uses a trapeze above his bed to reposition himself. I am speaking to his palliative care provider, Lexis López, and she says that he rarely leaves his room. He has residual dysphagia and dysarthria. Over time, he has developed more more contractures on the left hand, left elbow. His arms and leg will cramp on that side. In June 2018 he had a discussion with his primary care provider at that time, Rachel Osullivan, that his quality of life was diminished enough that he did know if he wanted to keep on doing routine medical care. As such he has been followed by Cathy López since that time. He was started on mirtazapine, melatonin. Even at that time he discussed hospice. He felt that it was a meaningful experience and was very happy with his 's care when she and that he looked down the road about possibly being in hospice. Since June 2018, has deteriorated with age and immobility. He was seen October 26 with inability to bear weight, generalized body pain, increasing depression. He was found to have an E. coli UTI and was treated for that. But then he developed further temperature, and lethargy, not wanting people to touch him. The antibiotic he was on was discontinued because the daughter felt that might be the problem. Thinking there might be a treatable cause it was recommended he go to the walk-in clinic but he refused. He was seen again November 02. He reported that his cramps were worse. Tramadol and Tylenol were not working anymore. He was not eating or drinking very much. It was explained to him that he could feel better if he received IV fluids or more aggressive treatment but he was very firm and stating he did not want that. He had already rolled out of bed and fell on the floor that day. With that visit, his daughter was present. He was very clear about his diminished quality of life, not wanting curative measures for UTI. He did not want to leave his facility or go to an urgent care. It was felt that he would unlikely return to his previous baseline function and that he would probably continue to deteriorate. Hospital bed was going to be obtained. And hospice was discussed. He was to have an appointment with them this coming Monday (today is Monday). Today, he had increasing fever, confusion, right red face. The daughter spoke to palliative care office on the phone and they felt that he might benefit from an evaluation with the walk-in clinic. As such the patient was taken to the walk-in clinic. The walk-in clinic did a quick assessment and felt that he may have aspiration pneumonia (Due to a witnessed episode of emesis), and infected cellulitic right face, and called an ambulance to bring him to the emergency room. His room air sats in their office were 88% and he was tachypneic with coarse lung sounds, coughing, wheezing. He has been refusing Covid vaccine. unfortunately the daughter did not explain to them that her dad was probably going to hospice in the next few days. In our emergency room he has been afebrile. Normotensive. Tachypneic at times to 29. And requiring anywhere between 2 to 3 L to maintain O2 sats at 98 to 100%. He has a red cheek on the right side, with facial pain and swelling. When the subcutaneous mass was present, there was purulent drainage from the parotid duct. He was coughing, congested. Tachypneic without accessory muscle use. Coarse lung sounds. White cell count was 29.5 thousand. BUN was 38 creatinine 1.5. Covid positive. Chest x-ray had increased retrocardiac and right basilar opacity suspicious for pneumonia. Soft tissue of the neck had enlargement of the right parotid gland compatible with history of parotid infection. No abscess. Chest CT had bibasilar lung consolidation stable compared to plain films that could represent aspiration or chronic pneumonia. No abscess. The emergency room physician does make note that he read the palliative care notes as well as the POLST form. I think there was miscommunication and it was not made clear that the patient is to be going into hospice. As such the emergency room provider called the hospitalist service to admit this patient. The hospitalist was also unaware of the hospice discussion with palliative care. The patient has now received IV fluids, antibiotics. I am the night custodian hospitalist coming on board. The patient is adamant that he did not want any of this. He did not want admission. He did not want antibiotics. He does not want IV fluids. He refuses any more blood draws. I discussed the case with his palliative care provider Lexislee ann López and she confirms his wishes. She is dismayed that he is at the hospital because he did not want this. He is now Covid positive as well and his facility may refuse to take him back. I spoke to his daughter Barbara @[phone], she is understandably overwhelmed in that she now has to support her dad's decisions. Both Ms. López and Barbara state that Mr. Krishnamurthy is definitely of sound mind. Knows what he wants. He has been consistent in his philosophy of goals of care for over a decade. That has not changed. Nevertheless, now that the time has come to make a decision about boswell pporting his wises for comfort measures and no active treatment, the daughter cannot believe this is happening. But she will not go against her father's wishes and agrees to comfort measures only if that is what he wants. I go back into the room to discuss this with the patient. He is initially u pset, starts telling me that he does not want anything done and why won't people listen to him. But I explained to him that I am here to listen to his case. That I will do whatever he wishes and he just needs to be clear about what he wants with me. He calms down and reiterates with a slow, dysarthric voice, that he does not want us to do anything except to keep him comfortable. I asked his permission to give him Tylenol, Ativan, morphine, secretion medicine such as Robinul, or nausea medicine such as Zofran. He asked if I was going to make him take these medicines and I carefully explained to him that these are as needed medicines. We will not force his medicines on them. He can take them if he needs them. He says that he would like that. 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 With lumpectomy) Psych: reports: Depression Musculoskeletal: reports: Hemiplegia - Family & Social History Family History Comment/Other: Father age 89 of an accident. Had dementia. Mother age 88 of Parkinson's complications. Had colon and breast cancer. age 79 of heart failure. She had Crohn's. His son, Mahin, in an accident at age 33 when a furnace blew up. 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 He mentions driving a red Corvette and smiles as he says that it was his "baby". He denied ever smoking cigarettes but did do cigars. Did have a history of alcohol abuse but never went through withdrawal and has not drank in years. No history of recreational substance abuse. Was living in [facility] when his and he moved to [facility] in 2005. He has been living at [facility]. - Substance History Use: Uses substance without health or social issues: Tobacco (Never smoker.), Alcohol (formerly drank excessively, per daughter. None now.) - POLST Patient has POLST: Yes POLST Status: DNR (He is on Palliative Care service ([facility]) last note 10/27/20. If declining, consider moving to Hospice.) Meds/Allgy - Home Medications Home Medications: Ambulatory Orders Medication Instructions Recorded Confirmed Acetaminophen [Acetaminophen Extra 500 mg PO QID MDD NTE 3g 06/17/20 11/06/20 Strength] Cholecalciferol (Vitamin D3) 1,000 units PO DAILY 06/17/20 11/06/20 [Vitamin D3] Clopidogrel [Plavix] 75 mg PO DAILY 06/17/20 11/06/20 Levothyroxine [Synthroid] 100 mcg PO DAILY 06/17/20 11/06/20 Melatonin 3 mg PO QPM 06/17/20 11/06/20 Min Oil/Dimeth/Coconut Oil Crm 1 applic TP DAILY PRN 06/17/20 11/06/20 [Cavilon] Mirtazapine [Remeron] 15 mg PO QPM 06/17/20 11/06/20 Multivitamin 1 tab PO DAILY 06/17/20 11/06/20 Vitamin B 6 100 mg PO DAILY 06/17/20 11/06/20 traMADol [Ultram] 50 mg PO Q6H PRN 06/17/20 11/06/20 - Allergies Allergies/Adverse Reactions: Allergies Allergy/AdvReac Type Severity Reaction Status Date / Time nitrofurantoin AdvReac Cramps Verified 11/06/20 15:39 [From Macrobid] Review of Systems - Constitutional Constitutional: reports: Fatigue, Fever, Chills, Malaise, Poor appetite - Eyes Eyes: reports: Vision loss. denies: Pain, Irritation - Ears, Nose & Throat Ears, Nose & Throat: reports: Nasal obstruction, Nasal congestion, Postnasal drainage, Hoarseness, Mouth lesions - Cardiovascular Cariovascular: reports: Exertional dyspnea, Decr. exercise tolerance. denies: Irregular heart rate, Palpitations, Chest pain, Edema - Respiratory Respiratory: reports: Cough, Sputum production, Wheezing, SOB at rest, SOB with exertion - Gastrointestinal Gastrointestinal: reports: Poor appetite (Not eating or drinking much). denies: Abdominal pain, Abdominal distention, Constipation, Diarrhea, Change in bowel habits - Genitourinary Genitourinary: reports: Other (Decreasing p.o. intake with decreasing urine output) - Musculoskeletal Musculoskeletal: reports: Muscle pain, Back pain, Muscle aches, Joint pain, Other (The left side of his body is slowly deborah more and more, more difficult for him to move it, and increasing cramps and aches) - Integumentary Integumentary: denies: Rash, Pruritis, Lesions, Dryness - Neurological Neurological: reports: General weakness, Focal weakness, Headache, Memory problems, Pre-existing deficit - Psychiatric Psychiatric: reports: Depression. denies: Anxiety, Suicidal, Delusions, Hallucinations - Endocrine Endocrine: denies: Polyuria, Polydypsia, Polyphagia - Hematologic/Lymphatic Hematologic/Lymphatic: denies: Anemia, Bruising, Petechiae Prior Level of Functionality: In the last few days he has become bedbound. Prior to that the most he did was get in a wheelchair for 6 hours out of the day. He is completely dependent on the staff at [facility] for activities of daily living other than he was able to feed himself using his right arm and hand. Exam - Vital Signs Reviewed Vital Signs: Yes Vital Signs: Vital Signs x48h Temp Pulse Pulse Resp BP BP Pulse Ox 11/06/20 18:52 36.9 C 73 18 141/67 H 96 11/06/20 18:30 64 25 H 133/62 H 99 11/06/20 18:00 63 27 H 123/65 98 11/06/20 17:30 64 18 125/62 98 11/06/20 17:00 66 27 H 131/64 H 98 11/06/20 16:51 61 24 122/68 98 11/06/20 16:21 62 29 H 121/66 100 11/06/20 16:15 67 24 11/06/20 15:34 36.7 C 74 22 129/68 95 - Physical Exam General Appearance: positive: Moderate distress (From combined emotional stress and coughing), Other (His eyes are closed when I walk in the room, but they open immediately when I call his name, and he does respond to my questioning appropriately) Eyes Bilateral: positive: PERRL, EOMI ENT: positive: No signs of dehydration, Other (Right parotid swelling, redness, heat with the skin over the parotid gland. Extends down the jawline into the submandibular area. Palpation of the parotid gland is painful for him. And I do express white purulent material from the inside of his cheek.) Neck: positive: No JVD, Lymphadenopathy (R). negative: Lymphadenopathy (L), Stiff neck Respiratory: positive: Rhonchi, Other (Loud gurgling cough. Not frequent. Happened twice during my exam) Cardiovascular: positive: Regular rate & rhythm, Systolic murmur. negative: Gallop/S4, Friction rub Peripheral Pulses: positive: 1+ Abdomen: positive: Non-tender, No organomegaly, No distention, Abnml bowel sounds (Hypoactive) Skin: positive: Dry, Pallor Neurologic/Psychiatric: positive: Disoriented to time. negative: CN's nml (2- 12) (Facial droop, dysarthric speech, unable to swallow), Motor nml (Left body hemiplegia with arm nonmobile, contracted elbow wrist and fingers. Left leg is barely movable with knee contracted. That being said, he is so weak that he can barely move his right arm and right leg as well. Not from plegia but from just severe fatigue and overall deconditioning. He gr) Sepsis Event Note (H) - Evaluation Current Stage of Sepsis: Sepsis Possible source of Sepsis: positive: Skin/soft tissue - Sepsis Criteria Sepsis Criteria: Recorded Respiratory Rate greater than 20, Respiratory: Increasing oxygen requirements, WBC count greater than 12,000 or less than 4000, Metabolic: lactate > 2 mmol/L Conclusion/Plan - Problem List (1) Sepsis Conclusion/Plan: From soft tissue wound infection. Patient was started on appropriate antibiotics and received IV fluid resuscitation. However once he was transferred to [facility] and a much clearer picture of his past goals of care were discussed, and I had a conversation with the patient, he does not want treatment. As such I have stopped antibiotics, IV fluids, lab draws, frequent vital checks Qualifiers: Sepsis type: sepsis due to unspecified organism Sepsis acute organ dysfunction status: without acute organ dysfunction Qualified Code(s): A41.9 - Sepsis, unspecified organism (2) Infection of parotid gland Conclusion/Plan: With purulent drainage from the Stensen's duct. Patient is requesting we stop antibiotics. (3) Pneumonia due to COVID-19 virus Conclusion/Plan: While he does appear to have pneumonia, he does not appear to have the diffuse bilateral groundglass opacities associated with Covid pneumonia. He may in fact have chronic atelectasis with subsequent bibasilar consolidation, or aspiration, but less likely Covid. He was started on remdesivir and Decadron. But, again, the patient is requesting we stop active treatment. As such remdesivir and Decadron have been stopped. Empiric antibiotic therapy for possible bacterial pneumonia have also been stopped. Social work will be consulted in the morning to see if there is a possibility this patient could be returned to his assisted living facility and open to hospice. (4) Hemiplegia of left nondominant side as late effect of cerebral infarction Conclusion/Plan: Prior to the stroke, he was described as a vigorous active male. Love driving around in his red sports car. Having a stroke was catastrophic for him emotionally and psychologically. Transition to comfort measures only per his request Qualifiers: Hemiplegia type: spastic Qualified Code(s): I69.354 - Hemiplegia and hemiparesis following cerebral infarction affecting left non-dominant side (5) ALEJANDRO (acute kidney injury) Conclusion/Plan: Due to decreased p.o. intake, anorexia in the face of infection. He is already received 2 L and close to 3 L of IV fluids. Those will be stopped. (6) Comfort measures only status Conclusion/Plan: I have stopped all of his original admission orders with regards to IV fluids, antibiotics, blood draws, vital sign checks. He will receive as needed morphine, Ativan, Zofran, Robinul, etc. - Lab Results Lab results reviewed: Yes Fish Bones: 11/06/20 16:01 11/06/20 16:01 - Diagnostic Imaging Results Diagnostic Imaging Results: positive: Final report reviewed Core Measures - Anticipated LOS I expect patient to be DC'd or transferred within 96 hours.: Yes - DVT/VTE - Prophylaxis VTE/DVT Device ordered at admit?: Yes
--- NOTE | 2020-11-06 22:53 | ADVANCE CARE PLANNING NOTE ---
Advance Care Planning - Planning Encounter Date: 11/06/20 Time: 22:51 Purpose: confirm care goals w daughter and Palliative care at patients request Parties in Attendance: patinet in person, daughter over phone, Palliative care over phone Decisional Capacity of the Patient: daughter who is POA states he still makes his own decisions - Diagnosis for Encounter (1) Sepsis Qualifiers: Sepsis type: sepsis due to unspecified organism Sepsis acute organ dysfunction status: without acute organ dysfunction Qualified Code(s): A41.9 - Sepsis, unspecified organism Summary: Began not feeling well around the middle of this month. Initially treated is a UTI. Seen on October 26 and November 02. As she rolled out of bed on the . Today, in spite of treatment with antibiotics, continued to be increasingly lethargic, increasingly more uncomfortable with diffuse body aches, a tender right red face. Seen in the urgent care clinic and sent to the hospital where he has been diagnosed as purulent parotiditis, pneumonia, positive Covid status, dehydration with acute kidney injury - Encounter Subjective/Patient's Story: He has been followed by palliative care since 2019. 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 Quality of life has gone downhill from that point on. He has had physical therapy, been in rehab, and was well taken care of by his . Unfortunately she after 3 years of a long illness and was in hospice when she . He moved to [facility] in 2005 from [facility]. He has excellent follow-up with palliative care service and there is a clear description of his functional status back in 2019 and how much ground he is lost between then and now. His goals of always been consistent with regards to what he wanted out of life and what he defined as a good versus poor quality of life. Over the last few weeks he has been insistent that he did not want to do anything else. He wanted to be left alone. He was to see hospice next week. Through miscommunication he was taken to an urgent care clinic today that called an ambulance. He was brought to the hospital where he was found to be septic because of a red face, purulent drainage from the parotid gland, coughing and short of breath with rhonchorous breath sounds. He says he hurts all over. Right face is hot and tender. He can barely move his right body anymore. He is miserable and wants us to leave him alone. Objective/Medical Story: Elderly gentleman with functional decline. Please refer to detailed history and physical today. Objective findings of sepsis were documented with sources of infection documented. Initial septic protocol was instituted with appropriate antibiotic therapy. After the patient was transferred to [facility], he has repeatedly told phlebotomy technicians, nursing staff, and aids that he does not want any of this. I spent 2 separate 15-minute visits with him going over his goals of care. In between those 215-minute visits, I spent another 10 to 15 minutes with his palliative primary health care nurse. I also spoke to his daughter on the phone. Verified his story, and that what he was telling me tonight is consistent with what he is told him in the past. Goals of Care: He wishes to have a comfortable with no more treatment for any of the things we have found on them. Plan: I have stopped antibiotics, blood draws, vital signs, oxygen checks. I have transitioned him to strictly as needed medications that would make him comfortable. It would be hoped that he can return to his assisted living facility, but there is a complicating factor that he is now Covid positive. I will also request hospice consult for Monday. Code Status: Do Not Attempt Resuscitation Time spent on advance care plannin minutes
[2020-11-07] MEDS ORDERED: PIPERACILLIN/TAZOBACTAM 3.375 GM in SODIUM CHLORIDE 0.9% MINIBAG 100 ML IV SCH (04:00)
[2020-11-07] MEDS: SODIUM CHLORIDE FLUSH 0.9% 10 ML SYRINGE IVP SCH ×3 (04:28→17:07)
[2020-11-07] MEDS ORDERED: ENOXAPARIN 40 MG/0.4 ML SYRINGE SUBQ SCH (09:00)
[2020-11-07] MEDS ORDERED: DEXAMETHASONE 4 MG/ML VIAL IVP SCH (09:00)
[2020-11-07 13:25] LABS: B. PARAPERTUSSIS- RESP PCR PAN NOT DETECTED; B. PERTUSSIS- RESP PCR PANEL NOT DETECTED; C. PNEUMONIAE- RESP PCR PANEL NOT DETECTED; CORONAVIRUS 229E-RESP PCR NOT DETECTED; CORONAVIRUS HKU1-RESP PCR NOT DETECTED; CORONAVIRUS NL63-RESP PCR NOT DETECTED; CORONAVIRUS OC43-RESP PCR NOT DETECTED; HUMAN METAPNEUMOVIRUS NOT DETECTED; INFLUENZA A- RESP PCR PANEL NOT DETECTED; INFLUENZA B - RESP PCR PANEL NOT DETECTED; M. PNEUMONIAE- RESP PCR PANEL NOT DETECTED; PARAINFLUENZA VIRUS 1 NOT DETECTED; PARAINFLUENZA VIRUS 2 NOT DETECTED; PARAINFLUENZA VIRUS 3 NOT DETECTED; PARAINFLUENZA VIRUS 4 NOT DETECTED; RHINOVIRUS/ENTEROVIRUS NOT DETECTED; RSV- RESP PCR PANEL NOT DETECTED; SARS-CoV-2 -RESP PCR PANEL DETECTED
--- NOTE | 2020-11-07 13:46 | PROVIDER PROGRESS NOTE ---
Assessment/Plan - Problem List (1) Sepsis Qualifiers: Sepsis type: sepsis due to unspecified organism Sepsis acute organ dysfunction status: without acute organ dysfunction Qualified Code(s): A41.9 - Sepsis, unspecified organism Assessment/Plan: 11/07 pt is comfortable sleeping at the bed, we will continue the care plan of comfortable measure only for pt, per pt's wishes (2) Comfort measures only status 11/07 we will continue hold all of his original admission orders with regards to IV fluids, antibiotics, blood draws, vital sign checks. pt will receive as needed morphine, Ativan, Zofran, Robinul, etc. continue hospice care per pt was already scheduled, plan to d/c [facility] with hospice care to followup. (3) Infection of parotid gland Conclusion/Plan: 11/07 we will continue nurse care. With purulent drainage from the Stensen's duct. Patient is requesting we stop antibiotics. (4) Pneumonia due to COVID-19 virus Conclusion/Plan: 11/07 Per patient's wish, we will hold all treatment for his pneumonia, We will continue comfortable measure. (5) Hemiplegia of left nondominant side as late effect of cerebral infarction Conclusion/Plan: from Prior to the stroke, we will continue support pt, focus on comfortable care (6) ALEJANDRO (acute kidney injury) Conclusion/Plan: continue hold IVF, and lab monitor per pt's willing. - Current Meds Current Meds: Current Medications Generic Name Dose Route Start Last Admin Trade Name Freq PRN Reason Stop Dose Admin Lorazepam 1 mg 11/06/20 20:45 11/07/20 04:28 Lorazepam 2 Mg/Ml Vial IVP 1 mg Q6H PRN Administration Anxiety/Agitation Sodium Chloride 10 ml 11/07/20 01:00 11/07/20 12:03 Sodium Chloride Flush 0.9% 10 Ml Syringe IVP 10 ml 0100,0900,1700 TATIANNA Administration - Lab Result Fish Bone Diagrams: 11/06/20 16:01 11/06/20 16:01 - Additional Planning My Orders: My Active Orders 11/07/20 Hospice Referral for Post-Discharge Services [CONS] Routine Social Work Consult [CONS] Routine Subjective - Subjective Patient Reports: Resting Comfortably, No Complaints Objective Vital Signs: Vital Signs - 24 hr 11/06/20 11/06/20 11/06/20 15:34 16:15 16: Temperature 36.7 C Heart Rate 74 67 62 Heart Rate [ Monitoring electrodes] Respiratory 22 24 29 H Rate Blood Pressure 129/68 121/66 Blood Pressure [Right Brachial artery] O2 Saturation 95 100 11/06/20 11/06/20 11/06/20 16:51 17:00 17:30 Temperature Heart Rate 61 66 64 Heart Rate [ Monitoring electrodes] Respiratory 24 27 H 18 Rate Blood Pressure 122/68 131/64 H 125/62 Blood Pressure [Right Brachial artery] O2 Saturation 98 98 98 11/06/20 11/06/20 11/06/20 18:00 18:30 18:52 Temperature 36.9 C Heart Rate 63 64 Heart Rate [ 73 Monitoring electrodes] Respiratory 27 H 25 H 18 Rate Blood Pressure 123/65 133/62 H Blood Pressure 141/67 H [Right Brachial artery] O2 Saturation 98 99 96 Oxygen O2 Source Nasal cannula Oxygen Flow Rate 2 I&O (Last 24 Hrs): Intake and Output Totals x24h 11/05/20 11/06/20 11/07/20 23:59 23:59 23:59 Intake Total 1353 Balance 1353 General: Alert, Oriented x3, No acute distress HEENT: Atraumatic Neck: Supple Lymphatic: no adenopathy Neuro: Alert, Non Focal Cardiovascular: Regular rate, Normal S1, Normal S2 Respiratory: Chest non-tender, No respiratory distress Abdomen: Normal bowel sounds, Soft Extremities: Normal pulses - Results Results: Laboratory Results WBC 29.5 x10^3/uL (4.8-10.8) H 11/06/20 16:01 RBC 5.00 10^6/uL (4.70-6.10) 11/06/20 16:01 Hgb 15.9 g/dL (14.0-18.0) 11/06/20 16:01 Hct 46.0 % (42.0-52.0) 11/06/20 16:01 MCV 92.0 fL (80.0-94.0) 11/06/20 16:01 MCH 31.8 pg (27.0-31.0) H 11/06/20 16:01 MCHC 34.6 g/dL (32.0-36.0) 11/06/20 16:01 RDW 13.2 % (12.0-15.0) 11/06/20 16:01 Plt Count 434 10^3/uL (130-450) 11/06/20 16: MPV 10.5 fL (7.4-11.4) 11/06/20 16: Neut # (Auto) Not Reportable 11/06/20 16: Lymph # (Auto) Not Reportable 11/06/20 16:01 [place] # (Auto) Not Reportable 11/06/20 16:01 Eos # (Auto) Not Reportable 11/06/20 16:01 Baso # (Auto) Not Reportable 11/06/20 16:01 Absolute Nucleated RBC Not Reportable 11/06/20 16: Total Counted 100 11/06/20 16: Band Neuts % (Manual) 2 % (0-10) 11/06/20 16: Abnorm Lymph % (Manual) 0 % 11/06/20 16: Nucleated RBC % Not Reportable 11/06/20 16: Neutrophils # (Manual) 26.8 10^3/uL (1.5-6.6) H 11/06/20 16:01 Lymphocytes # (Manual) 0.9 10^3/uL (1.5-3.5) L 11/06/20 16: Monocytes # (Manual) 1.8 10^3/uL (0.0-1.0) H 11/06/20 16:01 Eosinophils # (Manual) 0.0 10^3/uL (0-0.7) 11/06/20 16: Basophils # (Manual) 0.0 10^3/uL (0-0.1) 11/06/20 16: Differential Comment MANUAL DIFFERENTIAL 11/06/20 16: WBC Morphology NORMAL APPEARANCE (NORMAL) 11/06/20 16: Platelet Estimate NORMAL (130-450,000) (NORMAL) 11/06/20 16: Platelet Morphology NORMAL APPEARANCE (NORMAL) 11/06/20 16: RBC Morph Micro Appear NORMAL APPEARANCE (NORMAL) 11/06/20 16: Sodium 138 mmol/L (135-145) 11/06/20 16: Potassium 4.9 mmol/L (3.5-5.0) 11/06/20 16: Chloride 102 mmol/L (101-111) 11/06/20 16:01 Carbon Dioxide 18 mmol/L (21-32) L 11/06/20 16:01 Anion Gap 18.0 (6-13) H 11/06/20 16:01 BUN 38 mg/dL (6-20) H 11/06/20 16:01 Creatinine 1.5 mg/dL (0.6-1.2) H 11/06/20 16:01 Estimated GFR (MDRD) 44 (>89) L 11/06/20 16:01 Glucose 128 mg/dL (70-100) H 11/06/20 16:01 Lactic Acid 2.3 mmol/L (0.5-2.2) H 11/06/20 16:01 Calcium 8.7 mg/dL (8.5-10.3) 11/06/20 16:01 Total Bilirubin 1.8 mg/dL (0.2-1.0) H 11/06/20 16:01 AST 47 IU/L (10-42) H 11/06/20 16:01 ALT 49 IU/L (10-60) 11/06/20 16:01 Alkaline Phosphatase 87 IU/L (42-121) 11/06/20 16:01 B-Natriuretic Peptide 363 pg/mL (5-100) H 11/06/20 16:01 Total Protein 8.9 g/dL (6.7-8.2) H 11/06/20 16:01 Albumin 3.5 g/dL (3.2-5.5) 11/06/20 16:01 Globulin 5.4 g/dL (2.1-4.2) H 11/06/20 16:01 Albumin/Globulin Ratio 0.6 (1.0-2.2) L 11/06/20 16:01 Lipase 20 U/L (22-51) L 11/06/20 16:01 Nasal Adenovirus (PCR) NOT DETECTED 11/07/20 12:00 Nasal B. parapertussis DNA (PCR) NOT DETECTED 11/07/20 12:00 Nasal Coronavir 229E PCR NOT DETECTED 11/07/20 12:00 Nasal Coronavir HKU1 PCR NOT DETECTED 11/07/20 12:00 Nasal Coronavir NL63 PCR NOT DETECTED 11/07/20 12:00 Nasal Coronavir OC43 PCR NOT DETECTED 11/07/20 12:00 Nasal Enterovir/Rhinovir PCR NOT DETECTED 11/07/20 12:00 Nasal Influenza B PCR NOT DETECTED 11/07/20 12:00 Nasal Influenza A PCR NOT DETECTED 11/07/20 12:00 Nasal Parainfluen 1 PCR NOT DETECTED 11/07/20 12:00 Nasal Parainfluen 2 PCR NOT DETECTED 11/07/20 12:00 Nasal Parainfluen 3 PCR NOT DETECTED 11/07/20 12:00 Nasal Parainfluen 4 PCR NOT DETECTED 11/07/20 12:00 Nasal RSV (PCR) NOT DETECTED 11/07/20 12:00 Nasal B.pertussis DNA PCR NOT DETECTED 11/07/20 12:00 Nasal C.pneumoniae (PCR) NOT DETECTED 11/07/20 12:00 [place] Human Metapneumo PCR NOT DETECTED 11/07/20 12:00 Nasal M.pneumoniae (PCR) NOT DETECTED 11/07/20 12:00 Nasal SARS-CoV-2 (PCR) DETECTED A 11/07/20 12:00 Sepsis Event Note (H) - Evaluation Current Stage of Sepsis: Sepsis Possible source of Sepsis: positive: Skin/soft tissue - Sepsis Criteria Sepsis Criteria: Recorded Respiratory Rate greater than 20, Respiratory: Increasing oxygen requirements, WBC count greater than 12,000 or less than 4000, Metabolic: lactate > 2 mmol/L ABX Reporting Has patient been on IV antibiotics over the past 48 hours?: No Current Medications - Current Medications Current Medications: Active Medications Acetaminophen (Acetaminophen 325 Mg Tablet) 650 mg PO Q6HR PRN PRN Reason: Pain 1 to 4 Acetaminophen (Acetaminophen 160 Mg/5 Ml Susp Udc) 640 mg PO Q4H PRN PRN Reason: Fever >101 Carboxymethylcellulose (Carboxymethylcellulose Ophth Drops) 1 drops EACHEYE QID PRN PRN Reason: Dry Eye Glycopyrrolate (Glycopyrrolate 1 Mg/5 Ml Vial) 0.2 mg SUBQ Q4H PRN PRN Reason: Excessive secretions Lorazepam (Lorazepam 2 Mg/Ml Vial) 1 mg IVP Q6H PRN PRN Reason: Anxiety/Agitation Last Admin: 11/07/20 04:28 Dose: 1 mg Documented by: Morphine Sulfate (Morphine Oma 10 Mg/0.5 Ml Oral Syringe) 10 mg SL Q2HR PRN PRN Reason: PAIN Morphine Sulfate (Morphine 2 Mg/Ml Carpuject) 2 mg IVP Q2HR PRN PRN Reason: Pain or Shortness of air Last Admin: 11/07/20 17:07 Dose: 2 mg Documented by: Ondansetron HCl (Ondansetron 4 Mg/2 Ml Vial) 4 mg IVP Q6HR PRN PRN Reason: Nausea / Vomiting Sodium Chloride (Sodium Chloride Flush 0.9% 10 Ml Syringe) 10 ml IVP PRN PRN PRN Reason: NEEDED PER PROVIDER ORDERS Sodium Chloride (Sodium Chloride Flush 0.9% 10 Ml Syringe) 10 ml IVP 01 00,0900,1700 TATIANNA Last Admin: 11/07/20 17:07 Dose: 10 ml Documented by: Acetaminophen [Acetaminophen Extra Strength] 500 mg PO QID MDD NTE 3g 06/17/20 Cholecalciferol (Vitamin D3) [Vitamin D3] 1,000 units PO DAILY 06/17/20 Clopidogrel [Plavix] 75 mg PO DAILY 06/17/20 Levothyroxine [Synthroid] 100 mcg PO DAILY 06/17/20 Melatonin 3 mg PO QPM 06/17/20 Min Oil/Dimeth/Coconut Oil Crm [Cavilon] 1 applic TP DAILY PRN 06/17/20 Mirtazapine [Remeron] 15 mg PO QPM 06/17/20 Multivitamin 1 tab PO DAILY 06/17/20 Vitamin B 6 100 mg PO DAILY 06/17/20 traMADol [Ultram] 50 mg PO Q6H PRN 06/17/20
[2020-11-07] MEDS: MORPHINE 2 MG/ML CARPUJECT IVP PRN ×2 (17:07→21:57)
[2020-11-07] MEDS: SODIUM CHLORIDE FLUSH 0.9% 10 ML SYRINGE IVP PRN (21:57)
[2020-11-08] MEDS: SODIUM CHLORIDE FLUSH 0.9% 10 ML SYRINGE IVP SCH ×3 (01:00→16:14)
--- NOTE | 2020-11-08 14:52 | PROVIDER PROGRESS NOTE ---
Assessment/Plan - Problem List (1) Sepsis Qualifiers: Sepsis type: sepsis due to unspecified organism Sepsis acute organ dysfunction status: without acute organ dysfunction Qualified Code(s): A41.9 - Sepsis, unspecified organism Assessment/Plan: Patient is comfortable sleeping in the bed, No complaints. We will continue comfortable care only, Continue morphine as needed, continue Ativan as needed - Current Meds Current Meds: Current Medications Generic Name Dose Route Start Last Admin Trade Name Freq PRN Reason Stop Dose Admin Lorazepam 1 mg 11/06/20 20:45 11/07/20 04:28 Lorazepam 2 Mg/Ml Vial IVP 1 mg Q6H PRN Administration Anxiety/Agitation Morphine Sulfate 2 mg 11/06/20 20:45 11/07/20 21:57 Morphine 2 Mg/Ml Carpuject IVP 2 mg Q2HR PRN Administration Pain or Shortness of air Sodium Chloride 10 ml 11/06/20 18:10 11/07/20 21:57 Sodium Chloride Flush 0.9% 10 Ml Syringe IVP 10 ml PRN PRN Administration NEEDED PER PROVIDER ORDERS Sodium Chloride 10 ml 11/07/20 01:00 11/08/20 13:49 Sodium Chloride Flush 0.9% 10 Ml Syringe IVP 10 ml 0100,0900,1700 TATIANNA Administration - Lab Result Fish Bone Diagrams: 11/06/20 16:01 11/06/20 16:01 Subjective - Subjective Patient Reports: Resting Comfortably Objective Vital Signs: Vital Signs - 24 hr 11/08/20 11/08/20 07:18 13:59 Temperature 37.6 C Heart Rate [ 70 70 Monitoring electrodes] Respiratory 24 Rate Blood Pressure 112/58 L [Right Brachial artery] O2 Saturation 96 93 Oxygen O2 Source Nasal cannula Oxygen Flow Rate 2 I&O (Last 24 Hrs): Intake and Output Totals x24h 11/06/20 11/07/20 11/08/20 23:59 23:59 23:59 Intake Total 1353 Balance 1353 General: Alert, No acute distress HEENT: Atraumatic Neck: Supple Neuro: Alert Cardiovascular: Regular rate Respiratory: Chest non-tender Abdomen: Other (hypoactive bowel sound) - Results Results: Laboratory Results WBC 29.5 x10^3/uL (4.8-10.8) H 11/06/20 16:01 RBC 5.00 10^6/uL (4.70-6.10) 11/06/20 16:01 Hgb 15.9 g/dL (14.0-18.0) 11/06/20 16: Hct 46.0 % (42.0-52.0) 11/06/20 16:01 MCV 92.0 fL (80.0-94.0) 11/06/20 16: MCH 31.8 pg (27.0-31.0) H 11/06/20 16: MCHC 34.6 g/dL (32.0-36.0) 11/06/20 16: RDW 13.2 % (12.0-15.0) 11/06/20 16: Plt Count 434 10^3/uL (130-450) 11/06/20 16: MPV 10.5 fL (7.4-11.4) 11/06/20 16:01 Neut # (Auto) Not Reportable 11/06/20 16:01 Lymph # (Auto) Not Reportable 11/06/20 16:01 [place] # (Auto) Not Reportable 11/06/20 16:01 Eos # (Auto) Not Reportable 11/06/20 16:01 Baso # (Auto) Not Reportable 11/06/20 16:01 Absolute Nucleated RBC Not Reportable 11/06/20 16: Total Counted 100 11/06/20 16:01 Band Neuts % (Manual) 2 % (0-10) 11/06/20 16: Abnorm Lymph % (Manual) 0 % 11/06/20 16: Nucleated RBC % Not Reportable 11/06/20 16:01 Neutrophils # (Manual) 26.8 10^3/uL (1.5-6.6) H 11/06/20 16:01 Lymphocytes # (Manual) 0.9 10^3/uL (1.5-3.5) L 11/06/20 16:01 Monocytes # (Manual) 1.8 10^3/uL (0.0-1.0) H 11/06/20 16:01 Eosinophils # (Manual) 0.0 10^3/uL (0-0.7) 11/06/20 16: Basophils # (Manual) 0.0 10^3/uL (0-0.1) 11/06/20 16: Differential Comment MANUAL DIFFERENTIAL 11/06/20 16: WBC Morphology NORMAL APPEARANCE (NORMAL) 11/06/20 16: Platelet Estimate NORMAL (130-450,000) (NORMAL) 11/06/20 16: Platelet Morphology NORMAL APPEARANCE (NORMAL) 11/06/20 16: RBC Morph Micro Appear NORMAL APPEARANCE (NORMAL) 11/06/20 16:01 Sodium 138 mmol/L (135-145) 11/06/20 16: Potassium 4.9 mmol/L (3.5-5.0) 11/06/20 16: Chloride 102 mmol/L (101-111) 11/06/20 16: Carbon Dioxide 18 mmol/L (21-32) L 11/06/20 16: Anion Gap 18.0 (6-13) H 11/06/20 16: BUN 38 mg/dL (6-20) H 11/06/20 16: Creatinine 1.5 mg/dL (0.6-1.2) H 11/06/20 16: Estimated GFR (MDRD) 44 (>89) L 11/06/20 16: Glucose 128 mg/dL (70-100) H 11/06/20 16: Lactic Acid 2.3 mmol/L (0.5-2.2) H 11/06/20 16: Calcium 8.7 mg/dL (8.5-10.3) 11/06/20 16: Total Bilirubin 1.8 mg/dL (0.2-1.0) H 11/06/20 16: AST 47 IU/L (10-42) H 11/06/20 16: ALT 49 IU/L (10-60) 11/06/20 16: Alkaline Phosphatase 87 IU/L (42-121) 11/06/20 16: B-Natriuretic Peptide 363 pg/mL (5-100) H 11/06/20 16: Total Protein 8.9 g/dL (6.7-8.2) H 11/06/20 16: Albumin 3.5 g/dL (3.2-5.5) 11/06/20 16: Globulin 5.4 g/dL (2.1-4.2) H 11/06/20 16:01 Albumin/Globulin Ratio 0.6 (1.0-2.2) L 11/06/20 16:01 Lipase 20 U/L (22-51) L 11/06/20 16:01 Nasal Adenovirus (PCR) NOT DETECTED 11/07/20 12:00 Nasal B. parapertussis DNA (PCR) NOT DETECTED 11/07/20 12:00 Nasal Coronavir 229E PCR NOT DETECTED 11/07/20 12:00 Nasal Coronavir HKU1 PCR NOT DETECTED 11/07/20 12:00 Nasal Coronavir NL63 PCR NOT DETECTED 11/07/20 12:00 Nasal Coronavir OC43 PCR NOT DETECTED 11/07/20 12:00 Nasal Enterovir/Rhinovir PCR NOT DETECTED 11/07/20 12:00 Nasal Influenza B PCR NOT DETECTED 11/07/20 12:00 Nasal Influenza A PCR NOT DETECTED 11/07/20 12:00 Nasal Parainfluen 1 PCR NOT DETECTED 11/07/20 12:00 Nasal Parainfluen 2 PCR NOT DETECTED 11/07/20 12:00 Nasal Parainfluen 3 PCR NOT DETECTED 11/07/20 12:00 Nasal Parainfluen 4 PCR NOT DETECTED 11/07/20 12:00 Nasal RSV (PCR) NOT DETECTED 11/07/20 12:00 Nasal B.pertussis DNA PCR NOT DETECTED 11/07/20 12:00 Nasal C.pneumoniae (PCR) NOT DETECTED 11/07/20 12:00 [place]onatan Human Metapneumo PCR NOT DETECTED 11/07/20 12:00 Nasal M.pneumoniae (PCR) NOT DETECTED 11/07/20 12:00 Nasal SARS-CoV-2 (PCR) DETECTED A 11/07/20 12:00 Sepsis Event Note (H) - Evaluation Current Stage of Sepsis: Sepsis Possible source of Sepsis: positive: Skin/soft tissue - Sepsis Criteria Sepsis Criteria: Recorded Respiratory Rate greater than 20, Respiratory: Increasing oxygen requirements, WBC count greater than 12,000 or less than 4000, Metabolic: lactate > 2 mmol/L ABX Reporting Has patient been on IV antibiotics over the past 48 hours?: No Current Medications - Current Medications Current Medications: Active Medications Acetaminophen (Acetaminophen 325 Mg Tablet) 650 mg PO Q6HR PRN PRN Reason: Pain 1 to 4 Acetaminophen (Acetaminophen 160 Mg/5 Ml Susp Udc) 640 mg PO Q4H PRN PRN Reason: Fever >101 Carboxymethylcellulose (Carboxymethylcellulose Ophth Drops) 1 drops EACHEYE QID PRN PRN Reason: Dry Eye Glycopyrrolate (Glycopyrrolate 1 Mg/5 Ml Vial) 0.2 mg SUBQ Q4H PRN PRN Reason: Excessive secretions Lorazepam (Lorazepam 2 Mg/Ml Vial) 1 mg IVP Q6H PRN PRN Reason: Anxiety/Agitation Last Admin: 11/07/20 04:28 Dose: 1 mg Documented by: Morphine Sulfate (Morphine Oma 10 Mg/0.5 Ml Oral Syringe) 10 mg SL Q2HR PRN PRN Reason: PAIN Morphine Sulfate (Morphine 2 Mg/Ml Carpuject) 2 mg IVP Q2HR PRN PRN Reason: Pain or Shortness of air Last Admin: 11/07/20 21:57 Dose: 2 mg Documented by: Ondansetron HCl (Ondansetron 4 Mg/2 Ml Vial) 4 mg IVP Q6HR PRN PRN Reason: Nausea / Vomiting Sodium Chloride (Sodium Chloride Flush 0.9% 10 Ml Syringe) 10 ml IVP PRN PRN PRN Reason: NEEDED PER PROVIDER ORDERS Last Admin: 11/07/20 21:57 Dose: 10 ml Documented by: Sodium Chloride (Sodium Chloride Flush 0.9% 10 Ml Syringe) 10 ml IVP 0100,0900, 1700 TATIANNA Last Admin: 11/08/20 13:49 Dose: 10 ml Documented by: Acetaminophen [Acetaminophen Extra Strength] 500 mg PO QID MDD NTE 3g 06/17/20 Cholecalciferol (Vitamin D3) [Vitamin D3] 1,000 units PO DAILY 06/17/20 Clopidogrel [Plavix] 75 mg PO DAILY 06/17/20 Levothyroxine [Synthroid] 100 mcg PO DAILY 06/17/20 Melatonin 3 mg PO QPM 06/17/20 Min Oil/Dimeth/Coconut Oil Crm [Cavilon] 1 applic TP DAILY PRN 06/17/20 Mirtazapine [Remeron] 15 mg PO QPM 06/17/20 Multivitamin 1 tab PO DAILY 06/17/20 Vitamin B 6 100 mg PO DAILY 06/17/20 traMADol [Ultram] 50 mg PO Q6H PRN 06/17/20
[2020-11-08] MEDS: MORPHINE 2 MG/ML CARPUJECT IVP PRN ×2 (16:14→19:55)
[2020-11-08] MEDS: SODIUM CHLORIDE FLUSH 0.9% 10 ML SYRINGE IVP PRN (19:56)
[2020-11-09] MEDS: SODIUM CHLORIDE FLUSH 0.9% 10 ML SYRINGE IVP SCH ×2 (02:30→08:57)
[2020-11-09 07:12] VITALS: BP 123/69
--- NOTE | 2020-11-09 10:53 | Discharge Plan ---
Discharge Plan for SNF / [facility] - Discharge Plan And Transition Orders Problem Reviewed?: Yes Disposition: 50 Hospice/Home DC/Xfer Condition: Serious Allergies and Adverse Reactions: Allergies Allergy/AdvReac Type Severity Reaction Status Date / Time nitrofurantoin AdvReac Cramps Verified 11/06/20 15:39 [From Macrobid] Health Concerns: hospice care Plan of Treatment: pt may followup with hospice care Care Goals: focus on comfortable care, and quality of life, and followup with hospice care Assessment: pt is alert, explained the care plan with pt, pt understood. - SNF / PENITENTIARY Transition Orders Admit to (Facility): [facility] Under the care of (Name): Dr. 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 Notify PCP of admission and forward orders to primary provider for signature. Other Notification Orders: Call PCP immediately if patient develops dyspnea, chest pain/tightness or edema. Additional Bowel Program Orders: If no BM after 2 days, nurse may give M.O.M. 30ml PO PRN and/or ducolax Supp 1 ND and/or LEON 250mg P.O., and/or senna 1-2 tabs PO. On day 3 nurse may give repeat above order until residents constipation is resolved. Treatments & Other Orders: pt may follow up with hospice care in [facility] Oxygen Orders: as needed Medication Orders: PLEASE REFER TO THE DISCHARGE MEDICATION LIST. Insulin Orders?: No - Medications New Prescriptions: Morphine Oral Soln [Roxanol] 10 mg SL Q4HR PRN #30 ml PRN Reason: Pain LORazepam [Ativan] 0.5 mg PO Q6H PRN #10 tablet PRN Reason: Anxiety
--- NOTE | 2020-11-09 11:10 | DISCHARGE SUMMARY ---
Discharge Summary Admit Date: 11/06/20 Discharge Date: 11/09/20 Discharging Provider: Kai Wang Primary Care Provider: Karely Nava Condition at Discharge: Serious Discharge Disposition: 50 Hospice/Home DC/Xfer [facility]charge [facility] - DIAGNOSES Discharge Diagnoses with Status of Each Condition: 1) Sepsis pt choose comfortable measure only in the hospital, pt's daughter agreed to follow pt's wishes. we hold all of his original admission orders with regards to IV fluids, antibiotics, blood draws, vital sign checks. In the admission, pt had WBC 29.5, elevated lactic acid, parotid gland infection with purulent drainage, and Covid 19 infection with tachypnea and need oxygen support to remain his oxygen saturation. (2) Comfort measures only status Per pt's and his family's choice for comfort measure only status. pt received including as needed morphine, Ativan, Zofran, Robinul. continue hospice care in [facility] with hospice care to followup. (3) Infection of parotid gland Patient requested to stop antibiotics and comfortable care only, followup with hospice care (4) Pneumonia due to COVID-19 virus Per patient's wish, we hold all treatment for his pneumonia, We continue comfortable measure. (5) Hemiplegia of left nondominant side as late effect of cerebral infarction From pt's Prior stroke, we focus on comfortable care for pt, per pt's wishes (6) ALEJANDRO (acute kidney injury) hold IVF, and lab monitor per pt's willing. (7)Physical deconditioning Patient had severe physical deconditioning. Patient and patient's family choose comfortable care only status in the hospital and follow-up with hospice care - [facility] History of Present Illness: refer from Dr. Ko's HPI on 11/06/20 The patient is an 85-year-old white male who has been living in an assisted living facility since 2005. Prior to that he was living in [facility]. He came to the [facility] because his had . She had in hospice care. He spends most of his time in a wheelchair in his room. He is reclusive. 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 He has had physical therapy in the past. Uses a trapeze above his bed to reposition himself. I am speaking to his palliative care provider, Lexis López, and she says that he rarely leaves his room. He has residual dysphagia and dysarthria. Over time, he has developed more more contractures on the left hand, left elbow. His arms and leg will cramp on that side. In June 2018 he had a discussion with his primary care provider at that time, Rachel Osullivan, that his quality of life was diminished enough that he did know if he wanted to keep on doing routine medical care. As such he has been followed by Cliff López since that time. He was started on mirtazapine, melatonin. Even at that time he discussed hospice. He felt that it was a meaningful experience and was very happy with his 's care when she and that he looked down the road about possibly being in hospice. Since June 2018, has deteriorated with age and immobility. He was seen October 26 with inability to bear weight, generalized body pain, increasing depression. He was found to have an E. coli UTI and was treated for that. But then he developed further temperature, and lethargy, not wanting people to touch him. The antibiotic he was on was discontinued because the daughter felt that might be the problem. Thinking there might be a treatable cause it was recommended he go to the walk-in clinic but he refused. He was seen again November 02. He reported that his cramps were worse. Tramadol and Tylenol were not working anymore. He was not eating or drinking very much. It was explained to him that he could feel better if he received IV fluids or more aggressive treatment but he was very firm and stating he did not want that. He had already rolled out of bed and fell on the floor that day. With that visit, his daughter was present. He was very clear about his diminished quality of life, not wanting curative measures for UTI. He did not want to leave his facility or go to an urgent care. It was felt that he would unlikely return to his previous baseline function and that he would probably continue to deteriorate. Hospital bed was going to be obtained. And hospice was discussed. He was to have an appointment with them this coming Monday (today is Monday). Today, he had increasing fever, confusion, right red face. The daughter spoke to palliative care office on the phone and they felt that he might benefit from an evaluation with the walk-in clinic. As such the patient was taken to the walk-in clinic. The walk-in clinic did a quick assessment and felt that he may have aspiration pneumonia (Due to a witnessed episode of emesis), and infected cellulitic right face, and called an ambulance to bring him to the emergency room. His room air sats in their office were 88% and he was tachypneic with coarse lung sounds, coughing, wheezing. He has been refusing Covid vaccine. unfortunately the daughter did not explain to them that her dad was probably going to hospice in the next few days. In our emergency room he has been afebrile. Normotensive. Tachypneic at times to 29. And requiring anywhere between 2 to 3 L to maintain O2 sats at 98 to 100%. He has a red cheek on the right side, with facial pain and swelling. When the subcutaneous mass was present, there was purulent drainage from the parotid duct. He was coughing, congested. Tachypneic without accessory muscle use. Coarse lung sounds. White cell count was 29.5 thousand. BUN was 38 creatinine 1.5. Covid positive. Chest x-ray had increased retrocardiac and right basilar opacity suspicious for pneumonia. Soft tissue of the neck had enlargement of the right parotid gland compatible with history of parotid infection. No abscess. Chest CT had bibasilar lung consolidation stable compared to plain mary jane ms that could represent aspiration or chronic pneumonia. No abscess. The emergency room physician does make note that he read the palliative care notes as well as the POLST form. I think there was miscommunication and it was not made clear that the patient is to be going into hospice. As such the emergency room provider called the hospitalist service to admit this patient. The hospitalist was also unaware of the hospice discussion with palliative care. The patient has now received IV fluids, antibiotics. I am the casino shift manager hospitalist coming on board. The patient is adamant that he did not want any of this. He did not want admission. He did not want antibiotics. He does not want IV fluids. He refuses any more blood draws. I discussed the case with his palliative care provider Lexis López and she confirms his wishes. She is dismayed that he is at the hospital because he did not want this. He is now Covid positive as well and his facility may refuse to take him back. I spoke to his daughter Barbara @[phone], she is understandably overwhelmed in that she now has to support her dad's decisions. Both Ms. López and Barbara state that Mr. Krishnamurthy is definitely of sound mind. Knows what he wants. He has been consistent in his philosophy of goals of care for over a decade. That has not changed. Nevertheless, now that the time has come to make a decision about s upporting his wises for comfort measures and no active treatment, the daughter cannot believe this is happening. But she will not go against her father's wishes and agrees to comfort measures only if that is what he wants. I go back into the room to discuss this with the patient. He is initially upset, starts telling me that he does not want anything done and why won't people listen to him. But I explained to him that I am here to listen to his case. That I will do whatever he wishes and he just needs to be clear about what he wants with me. He calms down and reiterates with a slow, dysarthric voice, that he does not want us to do anything except to keep him comfortable. I asked his permission to give him Tylenol, Ativan, morphine, secretion medicine such as Robinul, or nausea medicine such as Zofran. He asked if I was going to make him take these medicines and I carefully explained to him that these are as needed medicines. We will not force his medicines on them. He can take them if he needs them. He says that he would like that. - ALLERGIES Allergies/Adverse Reactions: Allergies Allergy/AdvReac Type Severity Reaction Status Date / Time nitrofurantoin AdvReac Cramps Verified 11/06/20 15:39 [From Macrobid] - MEDICATIONS Home Medications: Ambulatory Orders Medication Instructions Recorded Confirmed LORazepam [Ativan] 0.5 mg PO Q6H PRN #10 tablet 11/09/20 Morphine Oral Soln [Roxanol] 10 mg SL Q4HR PRN #30 ml 11/09/20 - PHYSICAL EXAM AT DISCHARGE General Appearance: positive: Alert, Lethargic Eyes Bilateral: positive: No lid inflammation ENT: positive: Other (Right parotid swelling, redness). negative: Purulent nasal drainage Neck: positive: Nml inspection, Trachea midline Respiratory: positive: Chest non-tender, Rales Cardiovascular: positive: Irregularly irregular, Tachycardia Peripheral Pulses: positive: 1+ Abdomen: positive: Non-tender, No distention Skin: positive: Color nml, Warm, Dry Extremities: positive: Non-tender Neurologic/Psychiatric: positive: Sensation nml, Weakness. negative: Facial droop - LABS Result Diagrams: 11/06/20 16:01 11/06/20 16:01 - SEPSIS Current Stage of Sepsis: Sepsis Possible source of Sepsis: Skin/soft tissue Sepsis Criteria: Recorded Respiratory Rate greater than 20, Respiratory: In creasing oxygen requirements, WBC count greater than 12,000 or less than 4000, Metabolic: lactate > 2 mmol/L - FOLLOW UP Follow Up: pt may followup with hospice care - TIME SPENT Time Spent in Discharge (Minutes): 30
== END 2020-11-09 13:38 | disposition hospice, home (50) | DRG 871 ==
LOC: EDUNIT# → ED 15:31 → MS2 18:10
PROVIDERS: ADMIT Specialist; ATTEND Nurse Practitioner Gerontology
DX: A41.02 Sepsis due to Methicillin resistant Staphylococcus aureus (principal); R32 Unspecified urinary incontinence; U07.1 COVID-19; J12.82 Pneumonia due to coronavirus disease 2019; I69.354 Hemiplegia and hemiparesis following cerebral infarction affecting left non-dominant side; R06.02 Shortness of breath; N17.9 Acute kidney failure, unspecified; K11.20 Sialoadenitis, unspecified; E86.0 Dehydration; R13.10 Dysphagia, unspecified; R53.81 Other malaise; F32.9 Major depressive disorder, single episode, unspecified; F10.11 Alcohol abuse, in remission; E78.00 Pure hypercholesterolemia, unspecified; H54.7 Unspecified visual loss; Z66 Do not resuscitate; Z74.01 Bed confinement status; Z51.5 Encounter for palliative care; Z79.02 Long term (current) use of antithrombotics/antiplatelets; Z79.899 Other long term (current) drug therapy; Z85.3 Personal history of malignant neoplasm of breast; Z87.891 Personal history of nicotine dependence
CPT/HCPCS: 36415; 70491; 71045; 71260; 80053; 83605; 83690; 83880; 85025; 87070; 87181; 87205; 87631; 93005; 94640; 96365; 96375; 99284; 99285; A9270; J2060; Q9967; 0202U; 87040

== ENCOUNTER 2020-11-09 12:53 | Outpatient (CLI) | payer MEDICARE, OTHER | END 2020-11-09 12:54 | disposition home or self-care (01) | LOC: EMS 12:53 | PROVIDERS: ATTEND Nurse Practitioner Gerontology | DX: Z51.5 Encounter for palliative care (principal) | CPT/HCPCS: A0425; A0428 ==